=== PATIENT | female | born 1935 | race African-American/Black ===

== ENCOUNTER 2018-11-21 20:42 | Inpatient (IN) | payer OTHER ==
[2018-11-21] MEDS ORDERED: NA CHLORIDE 0.9% 500 ML ONE (22:15)
[2018-11-21 22:28] LABS: Absolute Lymphocytes (CBC) 1.8 K/uL (0.7-4.9); Absolute Monocytes 0.8 K/uL (0.1-1.3); Absolute Neutrophil 6.6 K/uL (1.8-8.0); Basophils % 0.8 % (0-1.3); Eosinophils % 1.5 % (0-4.4); Hematocrit 32.3 % (36.0-45.0); MPV 8.2 fL (7.6-11.3); Monocytes % 8.9 % (3.3-12.3); RBC Red Blood Cell Count 3.82 M/uL (3.86-4.86)
[2018-11-21 22:29] LABS: Protime INR 1.15
[2018-11-21 22:48] LABS: ALT/SGPT 14 U/L (12-78); AST/SGOT 9 U/L (15-37); Alkaline Phosphatase 97 U/L (45-117); BUN Blood Urea Nitrogen 36 mg/dL (7-18); Bicarbonate 26 mmol/L (21-32); Bilirubin Direct 0.1 mg/dL (0-0.2); Bilirubin Total 0.4 mg/dL (0.2-1.0); Glucose Level 141 mg/dL (74-106); Lipase 175 U/L (73-393); Magnesium 1.8 mg/dL (1.8-2.4); NT PRO-BNP 398 pg/mL (<450); Potassium 4.2 mmol/L (3.5-5.1); Protein, Total 9.3 g/dL (6.4-8.2); Sodium Level 141 mmol/L (136-145); Troponin (Emerg Dept Use Only) < 0.02 ng/mL (0.0-0.045)
--- NOTE | 2018-11-21 23:17 | ER ---
Nurse's Notes [facility] Name: Katrin Tsai Age: 83 yrs Sex: Female : 1935 Arrival Date: 11/21/2018 Time: 20:51 Bed 7 Private MD: MENA ALLEN Diagnosis: Fever, unspecified;Pneumonia due to other specified bacteria;Anemia, unspecified;Unspecified kidney failure Presentation: 11/21 20:53 Presenting complaint: Patient states: "First I had a bought with the flu, I've been aj1 having sweats at night. I've been anemic, I get shots at Dr. Hays's office" Patient denies pain. Reports she has been having these sweats for the past 5 days. Transition of care: patient was not received from another setting of care. Onset of symptoms was 2018. Risk Assessment: Do you want to hurt yourself or someone else? Patient reports no desire to harm self or others. Initial Sepsis Screen: Does the patient meet any 2 criteria? No. Patient's initial sepsis screen is negative. Does the patient have a suspected source of infection? No. Patient's initial sepsis screen is negative. Care prior to arrival: None. 20:53 Method Of Arrival: Ambulatory aj1 20:53 Acuity: ALY 3 aj1 Triage Assessment: 20:59 General: Appears in no apparent distress. comfortable, Behavior is calm, cooperative, aj1 appropriate for age. Pain: Denies pain. Neuro: Level of Consciousness is awake, alert, obeys commands. Cardiovascular: Patient's skin is warm and dry. Respiratory: Airway is patent Respiratory effort is even, unlabored, Respiratory pattern is regular, symmetrical. Historical: - Allergies: 20:59 Sulfa (Sulfonamide Antibiotics); aj1 - Home Meds: 20:59 carvedilol 25 mg oral tab 1 tab daily [Active]; clopidogrel 75 mg oral tab 1 tab once aj1 daily [Active]; potassium chloride 10 mEq Oral cpER 1 cap once daily [Active]; amlodipine 10 mg tab 1 tab once daily [Active]; metformin 500 mg Oral tab 1 tab once daily in the evening [Active]; valsartan-hydrochlorothiazide 320-25 mg oral tab 1 tab once daily [Active]; atorvastatin 20 mg oral tab 1 tab once daily [Active]; Vivian Thyroid 120 mg Oral tab daily [Active]; clonidine patch change every week [Active]; meclizine 25 mg Oral tab 1 tab 2 times per day [Active]; Lumigan 0.01 % ophthalmic drop nightly [Active]; - PMHx: 20:59 Hypothyroidism; Diabetes - NIDDM; Hypertension; Hyperlipidemia; aj1 - Immunization history:: Flu vaccine is up to date. - Social history:: Smoking status: Patient/guardian denies using tobacco. - Ebola Screening: : Patient denies travel to an Ebola-affected area in the 21 days before illness onset. - Family history:: not pertinent. Screenin:21 Abuse screen: Denies threats or abuse. Nutritional screening: No deficits noted. tl2 Tuberculosis screening: No symptoms or risk factors identified. Fall Risk None identified. Assessment: 21:14 General: Appears in no apparent distress. comfortable, Behavior is calm, cooperative, tl2 appropriate for age. Pain: Denies pain. Neuro: Level of Consciousness is awake, alert, obeys commands, Oriented to person, place, time, situation. Cardiovascular: Denies chest pain. Respiratory: Airway is patent Respiratory effort is even, unlabored, Respiratory pattern is regular, symmetrical. GI: No signs and/or symptoms were reported involving the gastrointestinal system. : No signs and/or symptoms were reported regarding the genitourinary system. Derm: Skin is pink, warm \\T\\ dry. pt reports that she is having "hot flashes" at night for the last 5 nights. 22:30 Reassessment: Patient appears in no apparent distress at this time. Patient and/or tl2 family updated on plan of care and expected duration. Pain level reassessed. Patient is alert, oriented x 3, equal unlabored respirations, skin warm/dry/pink. 23:30 Reassessment: Patient appears in no apparent distress at this time. Patient and/or tl2 family updated on plan of care and expected duration. Pain level reassessed. Patient is alert, oriented x 3, equal unlabored respirations, skin warm/dry/pink. 11/22 00:42 Reassessment: Patient appears in no apparent distress at this time. Patient and/or tl2 family updated on plan of care and expected duration. Pain level reassessed. Patient is alert, oriented x 3, equal unlabored respirations, skin warm/dry/pink. awaiting admission orders. 01:03 Reassessment: pt stable and ready for transport to floor. tl2 Vital Signs: 11/21 20:59 BP 150 / 79; Pulse 90; Resp 18; Temp 99.2; Pulse Ox 96% on R/A; Weight 61.23 kg (R); aj1 Height 5 ft. 3 in. (160.02 cm) (R); Pain 0/10; 22:00 BP 145 / 57; Pulse 82; Resp 17; Pulse Ox 96% ; Pain 0/10; tl1 23:00 BP 149 / 60; Pulse 82; Resp 17; Pulse Ox 96% on R/A; Pain 0/10; tl1 11/22 00:00 BP 142 / 59; Pulse 79; Resp 17; Temp 99.1(O); Pulse Ox 95% on R/A; Pain 0/10; tl1 00:46 BP 137 / 61; Pulse 81; Resp 16; Temp 99.1; Pulse Ox 97% on R/A; Pain 0/10; tl1 11/21 20:59 Body Mass Index 23.91 (61.23 kg, 160.02 cm) aj1 ED Course: 11/21 20:51 Patient arrived in ED. am2 20:52 MENA ALLEN is Private Physician. am2 20:55 Triage completed. aj1 20:59 Arm band placed on Patient placed in waiting room, Patient notified of wait time. aj1 21:22 Patient has correct armband on for positive identification. Bed in low position. Call tl2 light in reach. Adult w/ patient. 21:32 Cheo Luna MD is Attending Physician. josue 22:08 Inserted saline lock: 22 gauge in left antecubital area, using aseptic technique. Blood mt collected. 22:11 XRAY Chest (1 view) In Process Unspecified. EDMS 23:15 Priscila Pedraza MD is Hospitalizing Provider. josue 23:[address] via stretcher. kw1 23:[address] Patient moved back from CT. kw1 11/22 00:36 Thorax Wo Con In Process Unspecified. EDMS 00:42 Heidi Dennison, KNENY is Primary Nurse. tl1 00:49 No provider procedures requiring assistance completed. Patient admitted, IV remains in tl1 place. Administered Medications: 11/21 22:06 Drug: NS 0.9% 500 ml Route: IV; Rate: bolus; Site: left antecubital; tl2 23:00 Follow up: IV Status: Completed infusion; IV Intake: 500ml tl2 23:22 Drug: Rocephin - (cefTRIAXone) 1 grams Route: IVPB; Infused Over: 30 mins; Site: left tl2 antecubital; 23:30 Follow up: IV Status: Completed infusion; IV Intake: 20ml tl2 23:23 Drug: Zithromax 500 mg Route: IVPB; Infused Over: 1 hrs; Site: left antecubital; tl2 02 00:30 Follow up: IV Status: Completed infusion; IV Intake: 250ml tl2 Intake: 11/21 23:00 IV: 500ml; Total: 500ml. tl2 23:30 IV: 20ml; Total: 520ml. tl2 11/22 00:30 IV: 250ml; Total: 770ml. tl2 Outcome: 11/21 23:16 Decision to Hospitalize by Provider. josue 11/22 00:49 Admitted to Tele accompanied by tech, via wheelchair, with chart, Report called to tl1 Isatu COX 00:51 Condition: good tl1 01:02 Patient left the ED. tl1 Signatures: Dispatcher [employer] Nell Baker RN RN Cheo Murillo MD MD cha Lasagna, Tonya, RN RN tl1 Beatris Mukherjee RN RN tl2 Melinda Bailey Moriah [facility] Wilhelm, Kimberly [facility]
--- NOTE | 2018-11-21 23:18 | EDPHYS ---
Physician Documentation [facility] Name: Katrin Tsai Age: 83 yrs Sex: Female : 1935 Arrival Date: 11/21/2018 Time: 20:51 Bed 7 Private MD: MENA ALLEN ED Physician Cheo Luna HPI: 11/21 21:43 This 83 yrs old Black Female presents to ER via Ambulatory with complaints of night josue sweats. 21:43 night sweats. Onset: The symptoms/episode began/occurred 3 day(s) ago. Severity of josue symptoms: At their worst the symptoms were mild in the emergency department the symptoms are unchanged. The patient has experienced similar episodes in the past, a few times. Historical: - Allergies: 20:59 Sulfa (Sulfonamide Antibiotics); aj1 - Home Meds: 20:59 carvedilol 25 mg oral tab 1 tab daily [Active]; clopidogrel 75 mg oral tab 1 tab once aj1 daily [Active]; potassium chloride 10 mEq Oral cpER 1 cap once daily [Active]; amlodipine 10 mg tab 1 tab once daily [Active]; metformin 500 mg Oral tab 1 tab once daily in the evening [Active]; valsartan-hydrochlorothiazide 320-25 mg oral tab 1 tab once daily [Active]; atorvastatin 20 mg oral tab 1 tab once daily [Active]; Eldon Thyroid 120 mg Oral tab daily [Active]; clonidine patch change every week [Active]; meclizine 25 mg Oral tab 1 tab 2 times per day [Active]; Lumigan 0.01 % ophthalmic drop nightly [Active]; - PMHx: 20:59 Hypothyroidism; Diabetes - NIDDM; Hypertension; Hyperlipidemia; aj1 - Immunization history:: Flu vaccine is up to date. - Social history:: Smoking status: Patient/guardian denies using tobacco. - Ebola Screening: : Patient denies travel to an Ebola-affected area in the 21 days before illness onset. - Family history:: not pertinent. ROS: 21:43 Constitutional: Negative for fever, chills, and weight loss, Eyes: Negative for injury, josue pain, redness, and discharge, ENT: Negative for injury, pain, and discharge, Neck: Negative for injury, pain, and swelling, Cardiovascular: Negative for chest pain, palpitations, and edema, Respiratory: Negative for shortness of breath, cough, wheezing, and pleuritic chest pain, Abdomen/GI: Negative for abdominal pain, nausea, vomiting, diarrhea, and constipation, Back: Negative for injury and pain, : Negative for injury, bleeding, discharge, and swelling, MS/Extremity: Negative for injury and deformity, Skin: Negative for injury, rash, and discoloration, Psych: Negative for depression, anxiety, suicide ideation, homicidal ideation, and hallucinations, Allergy/Immunology: Negative for hives, rash, and allergies, Endocrine: Negative for neck swelling, polydipsia, polyuria, polyphagia, and marked weight changes, Hematologic/Lymphatic: Negative for swollen nodes, abnormal bleeding, and unusual bruising. 21:43 Neuro: Positive for weakness. Exam: 21:43 Constitutional: This is a well developed, well nourished patient who is awake, alert, josue and in no acute distress. Head/Face: Normocephalic, atraumatic. Eyes: Pupils equal round and reactive to light, extra-ocular motions intact. Lids and lashes normal. Conjunctiva and sclera are non-icteric and not injected. Cornea within normal limits. Periorbital areas with no swelling, redness, or edema. ENT: Nares patent. No nasal discharge, no septal abnormalities noted. Tympanic membranes are normal and external auditory canals are clear. Oropharynx with no redness, swelling, or masses, exudates, or evidence of obstruction, uvula midline. Mucous membranes moist. Neck: Trachea midline, no thyromegaly or masses palpated, and no cervical lymphadenopathy. Supple, full range of motion without nuchal rigidity, or vertebral point tenderness. No Meningismus. Chest/axilla: Normal chest wall appearance and motion. Nontender with no deformity. No lesions are appreciated. Cardiovascular: Regular rate and rhythm with a normal S1 and S2. No gallops, murmurs, or rubs. Normal PMI, no JVD. No pulse deficits. Respiratory: Lungs have equal breath sounds bilaterally, clear to auscultation and percussion. No rales, rhonchi or wheezes noted. No increased work of breathing, no retractions or nasal flaring. Abdomen/GI: Soft, non-tender, with normal bowel sounds. No distension or tympany. No guarding or rebound. No evidence of tenderness throughout. Back: No spinal tenderness. No costovertebral tenderness. Full range of motion. Female : Normal external genitalia. Skin: Warm, dry with normal turgor. Normal color with no rashes, no lesions, and no evidence of cellulitis. MS/ Extremity: Pulses equal, no cyanosis. Neurovascular intact. Full, normal range of motion. Neuro: Awake and alert, GCS 15, oriented to person, place, time, and situation. Cranial nerves II-XII grossly intact. Motor strength 5/5 in all extremities. Sensory grossly intact. Cerebellar exam normal. Normal gait. Psych: Awake, alert, with orientation to person, place and time. Behavior, mood, and affect are within normal limits. Vital Signs: 20:59 BP 150 / 79; Pulse 90; Resp 18; Temp 99.2; Pulse Ox 96% on R/A; Weight 61.23 kg (R); 1 Height 5 ft. 3 in. (160.02 cm) (R); Pain 0/10; 22:00 BP 145 / 57; Pulse 82; Resp 17; Pulse Ox 96% ; Pain 0/10; tl1 23:00 BP 149 / 60; Pulse 82; Resp 17; Pulse Ox 96% on R/A; Pain 0/10; tl1 11/22 00:00 BP 142 / 59; Pulse 79; Resp 17; Temp 99.1(O); Pulse Ox 95% on R/A; Pain 0/10; tl1 00:46 BP 137 / 61; Pulse 81; Resp 16; Temp 99.1; Pulse Ox 97% on R/A; Pain 0/10; tl1 11/21 20:59 Body Mass Index 23.91 (61.23 kg, 160.02 cm) [facility] MDM: 11/21 21:32 Patient medically screened. [facility] 21:45 Data reviewed: vital signs, nurses notes, lab test result(s), EKG, radiologic studies. [facility] 11/21 21:42 Order name: Basic Metabolic Panel; Complete Time: 23:05 [facility] 11/21 21:42 Order name: CBC with Diff [facility] 11/21 21:42 Order name: LFT's; Complete Time: 23:05 [facility] 11/21 21:42 Order name: Magnesium; Complete Time: 23:05 [facility] 11/21 21:42 Order name: NT PRO-BNP; Complete Time: 23:05 [facility] 11/21 21:42 Order name: PT-INR; Complete Time: 23:05 [facility] 11/21 21:42 Order name: Troponin (emerg Dept Use Only); Complete Time: 23:05 [facility] 11/21 21:42 Order name: Lipase; Complete Time: 23:05 [facility] 11/21 21:42 Order name: Urine Culture [facility] 11/21 21:42 Order name: Blood Culture Adult (2) [facility] 11/21 23:13 Order name: Procalcitonin [facility] 11/22 00:33 Order name: CBC with Automated Diff EDMS 11/22 00:33 Order name: CBC with Automated Diff EDMS 11/22 00:33 Order name: Comprehensive Metabolic Panel EDMS 11/21 21:42 Order name: XRAY Chest (1 view) [facility] 11/21 21:42 Order name: EKG; Complete Time: 21:44 [facility] 11/21 23:40 Order name: Thorax Wo Con EDMS 11/22 00:33 Order name: Comprehensive Metabolic Panel EDMS 11/22 00:34 Order name: Lipid Profile EDMS 11/22 00:34 Order name: Lipid Profile EDMS 11/22 00:34 Order name: Magnesium EDMS 11/22 00:34 Order name: Magnesium EDMS 11/22 00:34 Order name: Phosphorus EDMS 11/22 00:34 Order name: Phosphorus EDMS 11/22 00:34 Order name: CBC Smear Scan EDMS 11/22 01:01 Order name: Urine Dipstick--Ancillary (enter results) [facility] 11/21 21:42 Order name: Cardiac monitoring; Complete Time: 21:52 [facility] 11/21 21:42 Order name: EKG - Nurse/Tech; Complete Time: 22:19 [facility] 11/21 21:42 Order name: IV Saline Lock; Complete Time: 22:19 [facility] 11/21 21:42 Order name: Labs collected and sent; Complete Time: 22:19 [facility] 11/21 21:42 Order name: O2 Per Protocol; Complete Time: 21:46 [facility] 11/21 21:42 Order name: O2 Sat Monitoring; Complete Time: 21:46 [facility] 11/21 21:42 Order name: Urine Dipstick-Ancillary (obtain specimen); Complete Time: 01:00 [facility] 11/22 00:33 Order name: Regular EDMS Administered Medications: 22:06 Drug: NS 0.9% 500 ml Route: IV; Rate: bolus; Site: left antecubital; tl2 23:00 Follow up: IV Status: Completed infusion; IV Intake: 500ml tl2 23:22 Drug: Rocephin - (cefTRIAXone) 1 grams Route: IVPB; Infused Over: 30 mins; Site: left tl2 antecubital; 23:30 Follow up: IV Status: Completed infusion; IV Intake: 20ml tl2 23:23 Drug: Zithromax 500 mg Route: IVPB; Infused Over: 1 hrs; Site: left antecubital; tl2 11/22 00:30 Follow up: IV Status: Completed infusion; IV Intake: 250ml tl2 Disposition: 11/21/18 23:16 Hospitalization ordered by Priscila Pedraza for Inpatient Admission. Preliminary diagnosis are Fever, unspecified, Pneumonia due to other specified bacteria, Anemia, unspecified, Unspecified kidney failure. - Bed requested for Telemetry/MedSurg (Inpatient). - Status is Inpatient Admission. tl1 - Condition is Stable. - Problem is new. - Symptoms have improved. UTI on Admission? No Signatures: Dispatcher [employer] EDOR Nell Rodriguez RN RN aj1 Christy Chavez RN RN mw Anderson, Corey, MD MD cha Lasagna, Tonya, RN RN tl1 Beatris Mukherjee, RN RN tl2 Corrections: (The following items were deleted from the chart) 11/21 23:40 23:11 Thorax W/ Con+CT.RAD.BRZ ordered. [facility] 11/22 00:15 11/21 23:16 Hospitalization Ordered by Priscila Pedraza MD for Inpatient Admission. josue Preliminary diagnosis is Fever, unspecified; Pneumonia due to other specified bacteria. Bed requested for Telemetry/MedSurg (Inpatient). Status is Inpatient Admission. Condition is Stable. Problem is new. Symptoms have improved. UTI on Admission? No. josue 11/22 00:19 00:15 11/21/2018 23:16 Hospitalization Ordered by Priscila Pedraza MD for Inpatient mw Admission. Preliminary diagnosis is Fever, unspecified; Pneumonia due to other specified bacteria; Anemia, unspecified; Unspecified kidney failure. Bed requested for Telemetry/MedSurg (Inpatient). Status is Inpatient Admission. Condition is Stable. Problem is new. Symptoms have improved. UTI on Admission? No. josue 01:02 00:19 11/21/2018 23:16 Hospitalization Ordered by Priscila Pedraza MD for Inpatient tl1 Admission. Preliminary diagnosis is Fever, unspecified; Pneumonia due to other specified bacteria; Anemia, unspecified; Unspecified kidney failure. Bed requested for Telemetry/MedSurg (Inpatient). Status is Inpatient Admission. Condition is Stable. Problem is new. Symptoms have improved. UTI on Admission? No. mw
[2018-11-21] MEDS ORDERED: AZITHROMYCIN 500 MG/250 ML BAG ONE (23:28)
[2018-11-21] MEDS ORDERED: CEFTRIAXONE/SWI 1gm 1 GM/10 ML SYR ONE (23:28)
[2018-11-22] MEDS ORDERED: IPRATROPIUM BROM 0.5MG/2.5ML NEB PRN (00:12)
[2018-11-22] MEDS ORDERED: ALBUTEROL 2.5 MG/3 ML NEB SOL NEB PRN (00:12)
[2018-11-22] MEDS ORDERED: ONDANSETRON 4 MG/2 ML VIAL IV PRN (00:12)
[2018-11-22 00:33] LABS: Anisocytosis 1+; Blood Morphology Comment NOTED (NOT SEEN); Platelet Estimate ADEQ; Urine White Blood Cell Casts OK
[2018-11-22] MEDS: NA CHLORIDE 0.9% 1,000 ML IV SCH ×2 (01:17→15:25)
[2018-11-22 01:27] VITALS: BMI 24.4
[2018-11-22 01:45] LABS: Urine Blood 1+ (NEG); Urine Glucose NEGATIVE (NEG); Urine Protein TRACE (NEG); Urine Specific Gravity <1.005 (1.005-1.030)
[2018-11-22] MEDS ORDERED: AZITHROMYCIN IV 250 MG in NA CHLORIDE 0.9% 250 ML IVPB SCH (02:00)
[2018-11-22] MEDS ORDERED: CEFTRIAXONE 1 GM/NS 50 ML 1 GM/50 ML BAG IV SCH (03:00)
[2018-11-22] MEDS ORDERED: MAGNESIUM SULFATE 1 gm IVPB 1 GM/100 ML BAG IV ONE (06:16)
[2018-11-22 07:14] LABS: Urine Appearance CLEAR; Urine Bilirubin NEGATIVE (NEG); Urine Blood NEGATIVE (NEG); Urine Color YELLOW; Urine Glucose NEGATIVE (NEG); Urine Protein NEGATIVE (NEG); Urine Urobilinogen 0.2 mg/dL (0.2-1.0)
[2018-11-22 07:17] LABS: Urine Microscopic Reflex ORDER UMIC
--- NOTE | 2018-11-22 07:44 | EKG ---
Test Date: 2018-11-21 Test Time: 22:14:19 [employer] Instructor: MARK MEASUREMENT RESULTS: Intervals: Rate: 82 VA: 172 QRSD: 74 QT: 382 QTc: 446 Mclain: P: 63 VA: 172 QRS: -11 T: 56 INTERPRETIVE STATEMENTS: Normal sinus rhythm Moderate voltage criteria for LVH, may be normal variant Borderline ECG Compared to ECG 02/02/1993 18:38:00 No significant changes Electronically Signed On 11-22-18 07:43:47 [employer] by Syd Luciano
[2018-11-22 08:07] LABS: Urine Bacteria <20 /HPF (<20); Urine RBC <5 /HPF (NONE SEEN)
[2018-11-22 08:08] LABS: Urine Culture Reflex Order REFLEXED
[2018-11-22] MEDS: ENOXAPARIN 30 MG/0.3 ML SQ SCH (08:55)
[2018-11-22] MEDS ORDERED: CEFTRIAXONE/SWI 1gm 1 GM/10 ML SYR IVP SCH (09:00)
[2018-11-22] MEDS ORDERED: ENOXAPARIN 40 MG/0.4 ML SQ SCH (09:00)
[2018-11-22] MEDS ORDERED: PNEUMOCOCCAL VACCINE 0.5 ML IMVAC ONE (09:00)
--- NOTE | 2018-11-22 10:19 | P.CNS ---
Date of Consult: 11/22/18 Reason for Consult: Pneumonia Chief Complaint: Chills History of Present Illness: Patient is 83 years of age well up to flu-like illness in the beginning of October this year was treated with 2 courses of Zithromax no relief 5 days ago she started having chills and night sweats and was admitted to the hospital denies any chest pain productive cough was found to have pneumonia in the right lung currently doing well hemodynamically stable for prior history of cardiopulmonary problems patient does not smoke very active at baseline Allergies Sulfa (Sulfonamide Antibiotics) Allergy (Verified 11/22/18 00:38) Hives Home Medications: Amlodipine Besylate 10 mg PO DAILY 11/22/18 Atorvastatin Calcium 20 mg PO BEDTIME 11/22/18 Bimatoprost [Lumigan] 1 drop OPTH BEDTIME 11/22/18 Carvedilol 25 mg PO DAILY 11/22/18 Clonidine Patch [Catapres-Tts 1*] 1 each TD EVERY 7TH DAY 11/22/18 Clopidogrel Bisulfate [Plavix*] 75 mg PO DAILY 11/22/18 Meclizine HCl 25 mg PO BID 11/22/18 Metformin HCl 500 mg PO DAILY 6PM 11/22/18 Omeprazole 20 mg PO DAILY 11/22/18 Potassium Chloride [Klor-Con] 20 meq PO DAILY 11/22/18 Thyroid,Pork [H[place]way Thyroid] 120 mg PO DAILY 11/22/18 Valsartan/Hydrochlorothiazide [Valsartan-Hctz 320-25 mg Tab] 1 each PO DAILY 12/09 - Past Medical/Surgical History Diabetic: Yes -: hypothyroidism -: NIDDM -: HTN -: hyperlipidemia - Social History Alcohol use: No CD- Drugs: No Caffeine use: No Place of Residence: Home Review of Systems 10-point ROS is otherwise unremarkable Physical Examination Temp Pulse Resp BP Pulse Ox 98.8 F 86 18 145/64 H 96 11/22/18 08:00 11/22/18 08:00 11/22/18 08:00 11/22/18 08:00 11/22/18 08:00 General: Alert, Oriented x3 HEENT: Atraumatic Neck: Supple Respiratory: Crackles/rales (Crackles on the right side) Cardiovascular: No edema, Regular rate/rhythm, Normal S1 S2 Gastrointestinal: Normal bowel sounds, Soft and benign Laboratory Data (last 24 hrs) 11/21/18 21:40: PT 13.6 H, INR 1.15 11/21/18 21:40: WBC 9.5, Hgb 10.7 L, Hct 32.3 L, Plt Count 275 11/21/18 21:40: Sodium 141, Potassium 4.2, BUN 36 H, Creatinine 1.84 H, Glucose 141 H, Magnesium 1.8, Total Bilirubin 0.4, AST 9 L, ALT 14, Alkaline Phosphatase 97, Lipase 175 - Problems (1) Pneumonia Current Visit: Yes Status: Acute Plan: Patient is 83 years of age admitted with night sweats she does have a impressive right-sided pneumonia continue with Rocephin I have added doxycycline abnormal renal function white count is normal blood cultures pending continue with IV fluids for oxygenation is no continue with IV antibiotics until over the weekend possible discharge on Saturday on Augmentin and doxycycline she has already had 2 courses of Zithromax follow up with me in a couple of weeks Qualifiers: Pneumonia type: due to unspecified organism Laterality: right
[2018-11-22] MEDS: DOXYCYCLINE 100 MG CAP PO SCH ×2 (10:30→21:06)
[2018-11-22] MEDS: CEFTRIAXONE/SWI 1gm 1 GM/10 ML SYR IVP SCH ×2 (10:33→11:00)
--- NOTE | 2018-11-22 11:54 | P.HP ---
Certification for Inpatient Patient admitted to: Inpatient With expected LOS: >2 Midnights Patient will require the following post-hospital care: None Practitioner: I am a practitioner with admitting privileges, knowledge of patient current condition, hospital course, and medical plan of care. Services: Services provided to patient in accordance with Admission requirements found in Title 42 Section 412.3 of the Code of Federal Regulations Patient History Date of Service: 11/21/18 Reason for admission: shortness of breath with fever shakes and chills History of Present Illness: Patient is an 83-year-old female who presents to the hospital with difficulty with breathing. She has been ill for the last few days. She has had an upper respiratory infection since September. She has had 2 courses of Zithromax with no relief. Her symptoms have been grating gradually worse. She is having fever shakes and chills. She has had about 5-10 lb weight loss as well. she was seen in the emergency room and her chest x-ray revealed that she may have a pneumonia. The concerning part of this is that it could be a postobstructive pneumonia. If this is the case, then it will not heal quickly. She will be admitted to the hospital for further evaluation. Allergies Sulfa (Sulfonamide Antibiotics) Allergy (Verified 11/22/18 00:38) Hives Home Medications: Amlodipine Besylate 10 mg PO DAILY 11/22/18 Amox/Clavulanate [Augmentin 875-125 Tab] 875 mg PO BID #28 tab 11/22/18 Atorvastatin Calcium 20 mg PO BEDTIME 11/22/18 Bimatoprost [Lumigan] 1 drop OPTH BEDTIME 11/22/18 Carvedilol 25 mg PO DAILY 11/22/18 Clonidine Patch [Catapres-Tts 1*] 1 each TD EVERY 7TH DAY 11/22/18 Clopidogrel Bisulfate [Plavix*] 75 mg PO DAILY 11/22/18 Doxycycline Hyclate 100 mg PO BID #28 capsule 11/22/18 Meclizine HCl 25 mg PO BID 11/22/18 Metformin HCl 500 mg PO DAILY 6PM 11/22/18 Omeprazole 20 mg PO DAILY 11/22/18 Potassium Chloride [Klor-Con] 20 meq PO DAILY 11/22/18 Thyroid,Pork [[place] Thyroid] 120 mg PO DAILY 11/22/18 Valsartan/Hydrochlorothiazide [Valsartan-Hctz 320-25 mg Tab] 1 each PO DAILY 12/09 - Past Medical/Surgical History Has patient received pneumonia vaccine in the past: No Diabetic: Yes -: hypothyroidism -: NIDDM -: HTN -: hyperlipidemia Past Surgical History: Patient denies surgical history - Family History Father Family History: Reviewed- Non-Contributory - Social History Smoking Status: Current every day smoker Alcohol use: No CD- Drugs: No Caffeine use: No Place of Residence: Home Review of Systems 10-point ROS is otherwise unremarkable Physical Examination - Vital Signs Temperature: 98.8 F Blood Pressure: 145/64 Pulse: 86 Respirations: 18 Pulse Ox (%): 96 - Physical Exam General: Alert, In no apparent distress, Oriented x3 HEENT: Atraumatic, PERRLA, Mucous membr. moist/pink, EOMI, Sclerae nonicteric Neck: Supple, 2+ carotid pulse no bruit, No LAD, Without JVD or thyroid abnormality Respiratory: Diminished, Rhonchi/gurgles Cardiovascular: Regular rate/rhythm, Normal S1 S2 Gastrointestinal: Normal bowel sounds, Soft and benign, Non-distended, No tenderness Musculoskeletal: No clubbing, No swelling, No tenderness Integumentary: No rashes Neurological: Normal gait, Normal speech, Normal strength at 5/5 x4 extr, Normal tone, Sensation intact, Cranial nerves 3-12 intact, Normal affect Lymphatics: No axilla or inguinal lymphadenopathy - Studies Laboratory Data (last 24 hrs) 11/21/18 21:40: PT 13.6 H, INR 1.15 11/21/18 21:40: WBC 9.5, Hgb 10.7 L, Hct 32.3 L, Plt Count 275 11/21/18 21:40: Sodium 141, Potassium 4.2, BUN 36 H, Creatinine 1.84 H, Glucose 141 H, Magnesium 1.8, Total Bilirubin 0.4, AST 9 L, ALT 14, Alkaline Phosphatase 97, Lipase 175 Assessment & Plan - Problems (Diagnosis) (1) Right upper lobe pneumonia Current Visit: Yes Status: Acute (2) Right lower lobe pneumonia Current Visit: Yes Status: Acute (3) Hypertension Current Visit: Yes Status: Acute (4) Type 2 diabetes mellitus Current Visit: Yes Status: Acute (5) Dyslipidemia Current Visit: Yes Status: Acute - Plan Plan: 1. Continue with IV antibiotics 2. Awaiting sputum and blood culture; 3. Repeat chest x-ray in AM 4. CT scan of the chest reveals significant pneumonia. This may be a postobstructive pneumonia. Pulmonary has been consulted. Await their recommendation. 5. Continue with nebs as needed 6. O2 per protocol 7. Continue with gentle hydration 8. Repeat labs including CBC and renal function in a.m. 9. Outpt follow-up with Pulmonary 10. GI and DVT prophylaxis Discharge Plan: Home Plan to discharge in: 72 Hours - Advance Directives Does patient have a Living Will: Yes Does patient have a Durable POA for Healthcare: No - Code Status/Comfort Care Code Status Assessed: Yes Code Status: Full Code Critical Care: No Time Spent Managing PTS Care (In Minutes): 50
[2018-11-22] MEDS: PANTOPRAZOLE 40MG TABLET PO SCH (13:00)
[2018-11-22] MEDS ORDERED: CLONIDINE 0.1 MG/PATCH TD SCH (13:00)
[2018-11-22] MEDS ORDERED: VALSARTAN 80 MG TAB PO SCH (13:00)
[2018-11-22] MEDS: ACETAMINOPHEN 500 MG TAB PO PRN (13:26)
[2018-11-22] MEDS: CARVEDILOL 25 MG TAB PO SCH (13:27)
[2018-11-22] MEDS: AMLODIPINE 10 MG TAB PO SCH (13:27)
[2018-11-22] MEDS: CLOPIDOGREL 75 MG TABLET PO SCH (13:27)
[2018-11-22] MEDS: VALSARTAN 80 MG TAB PO SCH (13:27)
[2018-11-22] MEDS: hydroCHLOROthiazide 25 MG TAB PO SCH (13:27)
[2018-11-22] MEDS: ATORVASTATIN 20 MG TAB PO SCH (21:06)
[2018-11-22] MEDS ORDERED: VANCOMYCIN/NS 1 gm 1 GM/250 ML BAG IVPB ONE (22:45)
[2018-11-22] MEDS ORDERED: VANCOMYCIN 1 GM/VIAL ONE (23:09)
[2018-11-22] MEDS ORDERED: NA CHLORIDE 0.9% 250 ML ONE (23:10)
[2018-11-23] MEDS: ACETAMINOPHEN 500 MG TAB PO PRN ×3 (02:02→16:37)
[2018-11-23] MEDS: NA CHLORIDE 0.9% 1,000 ML IV SCH ×2 (05:30→18:20)
[2018-11-23 06:15] LABS: Magnesium 1.8 mg/dL (1.8-2.4); Phosphorus 3.7 mg/dL (2.5-4.9); Potassium 3.8 mmol/L (3.5-5.1)
[2018-11-23] MEDS ORDERED: POTASSIUM CL SA 10 MEQ TAB PO ONE (06:21)
[2018-11-23] MEDS ORDERED: MAGNESIUM SULFATE 1 gm IVPB 1 GM/100 ML BAG IV ONE (07:30)
[2018-11-23] MEDS: PANTOPRAZOLE 40MG TABLET PO SCH (08:32)
[2018-11-23] MEDS: CLOPIDOGREL 75 MG TABLET PO SCH (08:32)
[2018-11-23] MEDS: CARVEDILOL 25 MG TAB PO SCH (08:33)
[2018-11-23] MEDS: VALSARTAN 80 MG TAB PO SCH (08:33)
[2018-11-23] MEDS: DOXYCYCLINE 100 MG CAP PO SCH ×2 (08:33→21:00)
[2018-11-23] MEDS: AMLODIPINE 10 MG TAB PO SCH (08:33)
[2018-11-23] MEDS: hydroCHLOROthiazide 25 MG TAB PO SCH (08:34)
[2018-11-23] MEDS: ENOXAPARIN 30 MG/0.3 ML SQ SCH (08:34)
[2018-11-23] MEDS: CEFTRIAXONE/SWI 1gm 1 GM/10 ML SYR IVP SCH (08:34)
[2018-11-23] MEDS ORDERED: HOME MED 1 EA UNK (Omeprazole [Omeprazole] 20 MG) PO SCH (09:00)
[2018-11-23] MEDS ORDERED: hydroCHLOROthiazide 25 MG TAB PO SCH (09:00)
[2018-11-23] MEDS ORDERED: VALSARTAN PO SCH (09:00)
[2018-11-23] MEDS ORDERED: VANCOMYCIN 500 MG in NA CHLORIDE 0.9% 100 ML IVPB ONE (09:00)
[2018-11-23] MEDS ORDERED: HYDROCHLOROTHIAZIDE PO SCH (09:00)
--- NOTE | 2018-11-23 09:47 | P.PN ---
Subjective Date of Service: 11/23/18 Chief Complaint: shortness of breath with fever shakes and chills Pt seen and examined at bedside. Chart Reviewed. Case DW with Pulmonology. NO c/ o. Still having Chills at night time Review of Systems 10-point ROS is otherwise unremarkable Physical Examination - Vital Signs Temperature: 99.3 F Blood Pressure: 165/72 Pulse: 80 Respirations: 16 Pulse Ox (%): 92 - Physical Exam General: Alert, In no apparent distress HEENT: Atraumatic, PERRLA, EOMI Neck: Supple, JVD not distended Respiratory: Normal air movement, Expiratory wheezes, Inspiratory wheezes Cardiovascular: Regular rate/rhythm, Normal S1 S2 Gastrointestinal: Normal bowel sounds, No tenderness Musculoskeletal: No tenderness Integumentary: No rashes Neurological: Normal speech, Normal tone, Normal affect Lymphatics: No axilla or inguinal lymphadenopathy - Studies Medications List Reviewed: Yes Assessment And Plan - Current Problems (Diagnosis) (1) Pneumonia Current Visit: Yes Status: Acute Plan: Right Upper and Lower Lobe PNA. failed Outpt therapy x 2 -CT with RUL and RLL PNA -Continue with IV abx for now. -Switched to Vanc due to Blood culture + for gram + cocci -Pulmonology consulted. Appreciated Recs Qualifiers: Pneumonia type: due to unspecified organism Laterality: right (2) Hypertension Current Visit: Yes Status: Chronic Qualifiers: Hypertension type: essential hypertension Qualified Code(s): I10 - Essential (primary) hypertension (3) Type 2 diabetes mellitus Current Visit: Yes Status: Chronic Qualifiers: Diabetes mellitus termite control technician insulin use: without intermediate use Diabetes mellitus complication status: without complication Qualified Code(s): E11.9 - Type 2 diabetes mellitus without complications Discharge Plan: Home Plan to discharge in: 48 Hours - Code Status/Comfort Care Code Status Assessed: Yes Critical Care: No
[2018-11-23] MEDS: ATORVASTATIN 20 MG TAB PO SCH (21:54)
[2018-11-24] MEDS: NA CHLORIDE 0.9% 1,000 ML IV SCH ×2 (06:09→19:40)
[2018-11-24 06:35] LABS: Magnesium 1.9 mg/dL (1.8-2.4); Potassium 3.8 mmol/L (3.5-5.1)
[2018-11-24] MEDS ORDERED: POTASSIUM CL SA 10 MEQ TAB PO ONE ×2 (06:47→09:00)
[2018-11-24] MEDS: ENOXAPARIN 30 MG/0.3 ML SQ SCH (09:09)
[2018-11-24] MEDS: CEFTRIAXONE/SWI 1gm 1 GM/10 ML SYR IVP SCH (09:09)
[2018-11-24] MEDS: VALSARTAN 80 MG TAB PO SCH (09:10)
[2018-11-24] MEDS: AMLODIPINE 10 MG TAB PO SCH (09:10)
[2018-11-24] MEDS: CARVEDILOL 25 MG TAB PO SCH (09:10)
[2018-11-24] MEDS: PANTOPRAZOLE 40MG TABLET PO SCH (09:11)
[2018-11-24] MEDS: DOXYCYCLINE 100 MG CAP PO SCH ×2 (09:11→21:53)
[2018-11-24] MEDS: hydroCHLOROthiazide 25 MG TAB PO SCH (09:11)
[2018-11-24] MEDS: CLOPIDOGREL 75 MG TABLET PO SCH (09:11)
--- NOTE | 2018-11-24 10:25 | RAD REPORT ---
EXAM DESCRIPTION: RAD - Chest Single View CLINICAL HISTORY: COUGH. COMPARISON: None. TECHNIQUE: Portable AP chest x-ray. FINDINGS: Heart size: Normal. Lungs: Moderate peripheral infiltrate on the right appears multi lovar. AThe left lung is clear. Pleura: No pleural effusion. No pneumothorax. Mediastina, and sophy: Unremarkable. Skeletal: Unremarkable. Support tubings: None. IMPRESSION: 1. Right-sided pneumonia. Electronically signed by: Harshal Vogt MD 11/21/2018 11:56 PM TELEPHONE INTERCEPTOR OPERATOR Due to temporary technical issues with the PACS/Fluency reporting system, reports are being signed by the in house radiologist as a courtesy to ensure prompt reporting. The interpreting radiologist is f ully responsible for the content of the report.
--- NOTE | 2018-11-24 11:30 | P.PN ---
Subjective Date of Service: 11/24/18 Chief Complaint: shortness of breath with fever shakes and chills Pt seen and examined at bedside. Chart Reviewed. Case DW with Pulmonology. Patient no longer having sweats and chills overnight. Low-grade fever of 100.2 noted last night. Blood culture still pending at this time. Spoke with microbiology this morning, tape that the blood culture is positive for Gram positive weekly coags positive bacteria. It is a different type of staph coccus species. Will have proper ID by tomorrow morning at 4:00 a.m. the patient this morning continues to do well. Now having phlegm. Sputum culture collected and sent to the [facility] Review of Systems 10-point ROS is otherwise unremarkable Physical Examination - Vital Signs Temperature: 98.7 F Blood Pressure: 153/69 Pulse: 91 Respirations: 18 Pulse Ox (%): 96 - Physical Exam General: Alert, In no apparent distress HEENT: Atraumatic, PERRLA, EOMI Neck: Supple, JVD not distended Respiratory: Normal air movement, Expiratory wheezes, Inspiratory wheezes Cardiovascular: Regular rate/rhythm, Normal S1 S2 Gastrointestinal: Normal bowel sounds, No tenderness Musculoskeletal: No tenderness Integumentary: No rashes Neurological: Normal speech, Normal tone, Normal affect Lymphatics: No axilla or inguinal lymphadenopathy - Studies Medications List Reviewed: Yes Assessment And Plan - Current Problems (Diagnosis) (1) Pneumonia Onset Date: 11/24/18 Current Visit: Yes Status: Acute Plan: Right Upper and Lower Lobe PNA. failed Outpt therapy x 2 -CT with RUL and RLL PNA -Continue with IV abx for now. -Switched to Vanc due to Blood culture + for gram + cocci -Pulmonology consulted. Appreciated Recs -followup with blood culture and sputum culture tomorrow morning Qualifiers: Pneumonia type: due to unspecified organism Laterality: right (2) Hypertension Onset Date: 11/24/18 Current Visit: Yes Status: Chronic Qualifiers: Hypertension type: essential hypertension Qualified Code(s): I10 - Essential (primary) hypertension (3) Type 2 diabetes mellitus Onset Date: 11/24/18 Current Visit: Yes Status: Chronic Qualifiers: Diabetes mellitus technician terminal and repeater insulin use: without technician terminal and repeater use Diabetes mellitus complication status: without complication Qualified Code(s): E11.9 - Type 2 diabetes mellitus without complications - Plan Pending clinical improvement at this time. Patient failed outpatient therapy. Currently continue on IV antibiotics. Will culture still pending at this time. Sputum culture collected today and pending at this time. Discharge Plan: Home Plan to discharge in: 48 Hours - Code Status/Comfort Care Code Status Assessed: Yes Critical Care: No
--- NOTE | 2018-11-24 15:47 | RAD REPORT ---
EXAM DESCRIPTION: CT - Thorax Wo Con - 11/22/2018 4:30 am CLINICAL HISTORY: Thorax Wo con COMPARISON: Radiograph of the chest performed the same day. TECHNIQUE: Images obtained in axial, sagittal, and coronal planes. No oral or intravenous contrast was administe red. This exam was performed according to our departmental dose-optimization program, which includes autom ated exposure control, adjustment of the mA and/or kV according to patient size and/or less of iterat cira reconstruction technique. FINDINGS: No aortic rotation. Small pericardial effusion. Minimal pleural effusions bilaterally. Cor onary artery calcification. Mild left axillary adenopathy. Ill-defined confluent air space attenuation posterior right upper lobe as well as segment right lower lobe and interior right lower lobe. Nodular appearance present. Air bronchograms noted. Smaller nodu lar findings right upper lobe. Additional mildly spiculated confluent nodular airspace attenuation in ferior left lower lobe. No abnormality upper abdomen. No acute osseous abnormality. IMPRESSION: Extensive ill-defined nodular alveolar infiltrates right upper lobe and right lower lobe. Less pronou nced mildly spiculated infiltrate left lower lobe. The findings could be consistent with inflammatory process however follow-up to resolution would be needed to underlying neoplasm. Smaller nodular components identified right upper lobe. Small pericardial effusion. Electronically signed by: Emma Garcia MD 11/22/2018 AM REEL ASSEMBLER Due to temporary technical issues with the PACS/Fluency reporting system, reports are being signed by the in house radiologist as a courtesy to ensure prompt reporting. The interpreting radiologist is f ully responsible for the content of the report.
[2018-11-24] MEDS: ACETAMINOPHEN 500 MG TAB PO PRN (17:06)
[2018-11-24] MEDS ORDERED: VANCOMYCIN/NS 1 gm 1 GM/250 ML BAG IV SCH (21:00)
[2018-11-24] MEDS: ATORVASTATIN 20 MG TAB PO SCH (21:53)
[2018-11-25] MEDS: ACETAMINOPHEN 500 MG TAB PO PRN (03:55)
--- NOTE | 2018-11-25 08:35 | P.PN ---
Subjective Date of Service: 11/25/18 Chief Complaint: Pneumonia Subjective: Improving (Patient is doing well and has slight fever no cough sputum hemoptysis or chest pain) Review of Systems General: Weakness Respiratory: Cough Physical Examination - Vital Signs Temperature: 98.9 F Blood Pressure: 151/75 Pulse: 86 Respirations: 18 Pulse Ox (%): 96 - Physical Exam General: Alert, In no apparent distress, Oriented x3 Respiratory: Diminished, Crackles/rales (Crackles on the right side) Cardiovascular: No edema, Regular rate/rhythm - Studies Microbiology Data (last 24 hrs): 11/21/18 22:03 Blood - Blood Aerobic Blood Culture - Final Staph Hominis 11/21/18 22:03 Blood - Blood Gram Stain - Final 11/21/18 22:03 Blood - Blood Anaerobic Blood Culture - Final Staph Hominis 11/21/18 22:03 Blood - Blood Gram Stain - Final Medications List Reviewed: Yes Assessment & Plan - Problems (Diagnosis) (1) Pneumonia Onset Date: 11/24/18 Current Visit: Yes Status: Acute Plan: Patient is 83 years of age admitted with extensive pneumonia clinically she is doing better has little fever but cultures most likely contaminant sputum culture showed Gram pairs in neck ox IN change most likely strep issues as Zithromax before I recommend discharging her on levofloxacin 500 mg daily for 7 days in addition to her doxycycline follow with me in 2 weeks pre clinic chest x -ray room-air oxygenation satisfactory Qualifiers: Pneumonia type: due to unspecified organism Laterality: right
[2018-11-25] MEDS: CEFTRIAXONE/SWI 1gm 1 GM/10 ML SYR IVP SCH (09:00)
[2018-11-25] MEDS: NA CHLORIDE 0.9% 1,000 ML IV SCH (09:00)
[2018-11-25] MEDS: VALSARTAN 80 MG TAB PO SCH (10:34)
[2018-11-25] MEDS: ENOXAPARIN 30 MG/0.3 ML SQ SCH (10:34)
[2018-11-25] MEDS: DOXYCYCLINE 100 MG CAP PO SCH (10:35)
[2018-11-25] MEDS: hydroCHLOROthiazide 25 MG TAB PO SCH (10:35)
[2018-11-25] MEDS: CLOPIDOGREL 75 MG TABLET PO SCH (10:35)
[2018-11-25] MEDS: PANTOPRAZOLE 40MG TABLET PO SCH (10:36)
[2018-11-25] MEDS: CARVEDILOL 25 MG TAB PO SCH (10:36)
[2018-11-25] MEDS: AMLODIPINE 10 MG TAB PO SCH (10:36)
[2018-11-25 13:51] VITALS: O2SAT 95
[2018-11-25 13:54] VITALS: BP 154/86; TEMP 98.6
[2018-11-26] MEDS ORDERED: CLONIDINE 0.1 MG/PATCH TD SCH (09:00)
--- NOTE | 2018-11-26 15:17 | DS ---
Date of Discharge: 11/25/2018 Satellite Communications Operator: Dr. Miles with Pulmonology. Admitting Diagnoses: 1. Right upper lobe pneumonia. 2. Essential hypertension. 3. Type 2 diabetes mellitus with a long-term use of insulin with hyperglycemia. 4. Dyslipidemia. Discharge Diagnoses: 1. Right upper lobe and lower lobe pneumonia. Failed outpatient therapy, likely aspiration. 2. Essential hypertension. 3. Type 2 diabetes mellitus with a long-term use of insulin with hyperglycemia , 4. hypothyroidism, 5. hyperlipidemia. 6. SHANKAR Hospital Course: The patient is an 83-year-old female, comes in with difficulty breathing. She failed outpatient treatment with 2 courses of Zithromax. The patient's chest x-ray showed pneumonia likely postobstructive, possibly aspiration. She was started on IV antibiotics. The patient did have some elevated creatinine level, which improved with IV fluid hydration. The patient was seen by pulmonology, Dr. Miles. Sputum cultures showed growing gram-positive cocci in pairs and chains, may be strep. Blood cultures grew out Staph hominis in 2/4 bottles, likely skin contaminant. Overall, the patient responded well to treatment. She did have some fevers, clinically looked improved. CT scan of the chest showed extensive ill-defined nodular alveolar infiltrates, right upper lobe and right lower lobe less pronounced. Mildly spiculated infiltrate in the left lower lobe consistent with an inflammatory process. The patient will need repeat CT scan for resolution to rule out underlying neoplasm. Also, a small pericardial effusion was seen. The patient was doing well. She is ambulating without difficulty. No requirement of supplemental oxygen. The patient was then cleared for discharge from Pulmonology standpoint, should be sent home on Augmentin and doxycycline for 2 weeks. Return to ER for worsening condition. Follow up with primary care physician in 2 to 3 days. Follow up with process automation engineer, Dr. Miles in 2 weeks. Diet: Diabetic. Activity: As tolerated. Physical Examination: General: Awake, alert, oriented x3. No acute distress. Elderly female. CV: S1, S2. Peripheral pulses present. Respiratory: Moving air well bilaterally. No wheezing. Gastrointestinal: Abdomen is soft, nontender, nondistended. Positive bowel sounds. Extremities: No clubbing, cyanosis, or edema. Neuro: Nonfocal. Code Status: Full. Total time spent discharging the patient was 33 minutes. SA/MODL Voice ID: [id number] Report ID: [id number] SHAHAB
== END 2018-11-25 14:58 | disposition home or self-care (01) | DRG 178 ==
LOC: ER 20:42 → ERHOLD 11-22 00:41 → 4TH 11-22 00:50 → UNDODISIN 11-22 11:56
PROVIDERS: ADMIT Hospitalist; ATTEND Family Medicine
DX: J69.0 Pneumonitis due to inhalation of food and vomit (principal); N17.9 Acute kidney failure, unspecified; I31.3 Pericardial effusion (noninflammatory); E11.65 Type 2 diabetes mellitus with hyperglycemia; Z79.4 Long term (current) use of insulin; E03.9 Hypothyroidism, unspecified; I10 Essential (primary) hypertension; Z88.2 Allergy status to sulfonamides; F17.210 Nicotine dependence, cigarettes, uncomplicated
CPT/HCPCS: 36415; 71045; 71250; 80048; 80076; 80202; 81003; 81015; 82962; 83690; 83735; 83880; 84100; 84145; 84484; 85025; 85610; 87040; 87070; 87077; 87086; 87088; 87186; 87205; 93005; 94760; 96361; 96365; 96375; 99285; J0456; J0696; J1650; J3370; J3475; J7030

== ENCOUNTER 2019-01-17 16:11 | Inpatient (IN) | payer OTHER ==
[2019-01-17 17:06] LABS: Absolute Lymphocytes (CBC) 1.8 K/uL (0.7-4.9); Absolute Monocytes 0.8 K/uL (0.1-1.3); Absolute Neutrophil 6.3 K/uL (1.8-8.0); Basophils % 0.6 % (0-1.3); Eosinophils % 0.9 % (0-4.4); Hematocrit 29.7 % (36.0-45.0); Lymphocytes % 19.4 % (15.3-44.8); Monocytes % 9.1 % (3.3-12.3); RBC Red Blood Cell Count 3.64 M/uL (3.86-4.86)
[2019-01-17 17:37] LABS: Potassium 4.6 mmol/L (3.5-5.1)
--- NOTE | 2019-01-17 18:04 | RAD REPORT ---
EXAM DESCRIPTION: CT - Thorax Wo Con CLINICAL HISTORY: Chest pain cough, night sweats COMPARISON: Thorax Wo Con dated 11/21/2018 FINDINGS: Areas alveolar lung opacification seen in the posterior right upper lobe, superior segment right lower lobe and right lung base. Small linear opacity is present in the left lung base. Several small subpleural nodules are seen in the left upper lobe and right apex, new or enlarged since nicky rative study. The greatest degree of airspace opacification is seen in the posterior right lung base on today's study. No pleural or pericardial effusion. Mildly prominent mediastinal lymph nodes are seen, unchanged since prior study. No rib fracture evident. No gross upper abdominal finding. All CT scans are performed using dose optimization technique as appropriate and may include automated exposure control or mA/KV adjustment according to patient size. IMPRESSION: Areas of airspace opacification and ill-defined nodularity present predominately in the right lung.Right lower lobe findings appear new or progressive since the comparative study. Right mid and upper lobe findings appear less significant relative to comparative examination. Atypical pneumo yariel is felt to be the most likely etiology of these findings, with tuberculosis is a possibility whic h may be clinically considered.
--- NOTE | 2019-01-17 18:23 | ER ---
Nurse's Notes [facility] Name: Katrin Tsai Age: 83 yrs Sex: Female : 1935 Arrival Date: 01/17/2019 Time: 16:14 Bed 23 [facility] MD: MENA ALLEN Diagnosis: Cough;Atypical Pneumonia Presentation: 01/17 16:17 Presenting complaint: Patient states: I have been sick since September, flu and PNA. la1 Last night I got a real bad sweat and pain on the right side of my chest. Transition of care: patient was not received from another setting of care. Onset of symptoms was January 17, 2019. Risk Assessment: Do you want to hurt yourself or someone else? Patient reports no desire to harm self or others. Initial Sepsis Screen: Does the patient meet any 2 criteria? No. Patient's initial sepsis screen is negative. Does the patient have a suspected source of infection? No. Patient's initial sepsis screen is negative. Care prior to arrival: None. 16:17 Method Of Arrival: Ambulatory la1 16:17 Acuity: ALY 3 la1 Historical: - Allergies: 16:17 Sulfa (Sulfonamide Antibiotics); la1 - Home Meds: 17:38 amlodipine 10 mg tab 1 tab once daily [Active]; [place] Thyroid 120 mg Oral tab daily mg2 [Active]; atorvastatin 20 mg Oral tab 1 tab once daily [Active]; carvedilol 25 mg Oral tab 1 tab daily [Active]; clonidine patch change every week [Active]; clopidogrel 75 mg Oral tab 1 tab once daily [Active]; Lumigan 0.01 % ophthalmic drop nightly [Active]; meclizine 25 mg Oral tab 1 tab 2 times per day [Active]; metformin 500 mg Oral tab 1 tab once daily in the evening [Active]; potassium chloride 10 mEq Oral cpER 1 cap once daily [Active]; valsartan-hydrochlorothiazide 320-25 mg Oral tab 1 tab once daily [Active]; - PMHx: 16:17 Diabetes - NIDDM; Hyperlipidemia; Hypertension; Hypothyroidism; la1 - Immunization history:: Adult Immunizations up to date. - Social history:: Smoking status: Patient/guardian denies using tobacco. - Ebola Screening: : No symptoms or risks identified at this time. - Family history:: not pertinent. - Hospitalizations: : The patient was recently seen at [facility]. Screenin:36 Abuse screen: Denies threats or abuse. Denies injuries from another. Nutritional mg2 screening: No deficits noted. Tuberculosis screening: No symptoms or risk factors identified. Fall Risk IV access (20 points). Assessment: 17:35 General: Appears in no apparent distress. comfortable, Behavior is calm, cooperative. mg2 Pain: Denies pain. Neuro: Level of Consciousness is awake, alert, obeys commands, Oriented to person, place, time, situation. Cardiovascular: Capillary refill < 3 seconds Patient's skin is warm and dry. Respiratory: Reports cough that is non-productive, dry, since sep 2018 Airway is patent Respiratory effort is even, unlabored, Respiratory pattern is regular, symmetrical. GI: No signs and/or symptoms were reported involving the gastrointestinal system. : No signs and/or symptoms were reported regarding the genitourinary system. EENT: No signs and/or symptoms were reported regarding the EENT system. Derm: Skin is intact, is healthy with good turgor, Skin is pink, warm \T\ dry. normal. Musculoskeletal: Circulation, motion, and sensation intact. Capillary refill < 3 seconds. 18:56 Reassessment: patient informed about the plan for hospitalization and she agreed. mg2 19:46 Reassessment: Nurse Stanford will call to receive report. mg2 19:56 Reassessment:. mg2 Vital Signs: 16:19 Pulse 89; Resp 16; Temp 98.7(O); Pulse Ox 97% on R/A; Weight 61.23 kg; Height 5 ft. 3 la1 in. (160.02 cm); 16:20 BP 151 / 58; la1 16:38 BP 153 / 68; Pulse 90; Pulse Ox 96% ; mb4 17:18 Temp 98.4; mb4 18:54 BP 164 / 72; Pulse 89; Resp 18; Pulse Ox 98% on R/A; mg2 19:33 Temp 101.1; mg2 16:19 Body Mass Index 23.91 (61.23 kg, 160.02 cm) la1 ED Course: 16:14 Patient arrived in ED. mr 16:15 MENA ALLEN is Private Physician. mr 16:18 Triage completed. la1 16:18 Arm band placed on left wrist. la1 16:21 Chin Epstein MD is Attending Physician. rn 16:37 Pulse ox on. NIBP on. mb4 16:39 Barney Suarez, RN is Primary Nurse. mg2 17:18 Warm blanket given. mb4 17:37 No provider procedures requiring assistance completed. Inserted saline lock: 20 gauge mg2 in left forearm, using aseptic technique. Blood collected. 17:39 Patient has correct armband on for positive identification. mg2 17:54 CT completed. Patient tolerated procedure well. Patient moved to radiology. vr 17:54 Thorax Wo Con In Process Unspecified. EDMS 18:02 X-ray completed. Portable x-ray completed in exam room. Patient tolerated procedure tm4 well. 18:03 XRAY Chest Pa And Lat (2 Views) In Process Unspecified. EDMS 18:22 Meenakshi Caba MD is Hospitalizing Provider. rn 19:56 Patient admitted, IV remains in place. mg2 Administered Medications: 18:46 Drug: LevaQUIN 500 mg Volume: 100 ml; Route: IVPB; Infused Over: 60 mins; Site: left mg2 forearm; 19:37 Follow up: Response: No adverse reaction; IV Status: Completed infusion mg2 19:44 Drug: Tylenol 1000 mg Route: PO; mg2 19:50 Follow up: Response: No adverse reaction mg2 Outcome: 18:22 Decision to Hospitalize by Provider. rn 19:56 Admitted to Tele accompanied by [facility], via wheelchair, room 417, with chart, Report mg2 called to KENNY Stanford 19:56 Condition: stable 19:56 Instructed on the need for admit, Demonstrated understanding of instructions. 20:18 Patient left the ED. mg2 Signatures: Dispatcher [employer] [facility] GurpreetElaine Justo [place] tm4 Chin Epstein MD MD rn Davis, Victoria Stone Baca RN RN la1 [place], Michele, Halina Milton RN mb4
--- NOTE | 2019-01-17 18:23 | EDPHYS ---
Physician Documentation [facility] Name: Katrin Tsai Age: 83 yrs Sex: Female : 1935 Arrival Date: 01/17/2019 Time: 16:14 Bed 23 Private MD: MENA ALLEN ED Physician Chin Epstein HPI: 01/17 16:37 This 83 yrs old Black Female presents to ER via Ambulatory with complaints of Fever, rn cough, chest pain. 16:37 The patient reports fever, not measured (subjective). Onset: The symptoms/episode rn began/occurred at an unknown time. Modifying factors: there are no obvious modifying factors. Severity of symptoms: At their worst the symptoms were mild in the emergency department the symptoms are unchanged. The patient has experienced similar episodes in the past. Reports admitted for a long time last month with pneumonia, got better, but not back to baseline, reports getting chest xray every 2 weeks since then, xrays are still showing pneumonia, reports has had dry cough and fatigue, but doesn't feel as bad as previous pneumonia. No chronic lung conditions. . Historical: - Allergies: 16:17 Sulfa (Sulfonamide Antibiotics); la1 - Home Meds: 17:38 amlodipine 10 mg tab 1 tab once daily [Active]; Alcalde Thyroid 120 mg Oral tab daily mg2 [Active]; atorvastatin 20 mg Oral tab 1 tab once daily [Active]; carvedilol 25 mg Oral tab 1 tab daily [Active]; clonidine patch change every week [Active]; clopidogrel 75 mg Oral tab 1 tab once daily [Active]; Lumigan 0.01 % ophthalmic drop nightly [Active]; meclizine 25 mg Oral tab 1 tab 2 times per day [Active]; metformin 500 mg Oral tab 1 tab once daily in the evening [Active]; potassium chloride 10 mEq Oral cpER 1 cap once daily [Active]; valsartan-hydrochlorothiazide 320-25 mg Oral tab 1 tab once daily [Active]; - PMHx: 16:17 Diabetes - NIDDM; Hyperlipidemia; Hypertension; Hypothyroidism; la1 - Immunization history:: Adult Immunizations up to date. - Social history:: Smoking status: Patient/guardian denies using tobacco. - Ebola Screening: : No symptoms or risks identified at this time. - Family history:: not pertinent. - Hospitalizations: : The patient was recently [facility] at [facility]. ROS: 16:37 Constitutional: + chills and night sweats Eyes: Negative for injury, pain, redness, and pattern clerk, Neck: Negative for injury, pain, and swelling, Cardiovascular: Negative for chest pain, palpitations, and edema, Respiratory: + cough and pleuritic right chest pain Abdomen/GI: Negative for abdominal pain, nausea, vomiting, diarrhea, and constipation, MS/Extremity: Negative for injury and deformity, Skin: Negative for injury, rash, and discoloration, Neuro: + generalized weakness Exam: 16:37 Constitutional: This is a well developed, well nourished patient who is awake, alert, rn and in no acute distress. Head/Face: Normocephalic, atraumatic. Eyes: Pupils equal round and reactive to light, extra-ocular motions intact. Lids and lashes normal. Conjunctiva and sclera are non-icteric and not injected. Cornea within normal limits. Periorbital areas with no swelling, redness, or edema. ENT: MMM, no stridor Cardiovascular: Regular rate and rhythm, No pulse deficits. Respiratory: Lungs have equal breath sounds bilaterally, clear to auscultation, No increased work of breathing, no retractions or nasal flaring. Skin: Warm, dry with normal turgor. Normal color with no rashes, no lesions, and no evidence of cellulitis. MS/ Extremity: Pulses equal, no cyanosis. Neurovascular intact. Full, normal range of motion. Equal circumference. Neuro: Awake and alert, GCS 15, oriented to person, place, time, and situation. Cranial nerves II-XII grossly intact. Motor strength 5/5 in all extremities. Sensory grossly intact. Cerebellar exam normal. Vital Signs: 16:19 Pulse 89; Resp 16; Temp 98.7(O); Pulse Ox 97% on R/A; Weight 61.23 kg; Height 5 ft. 3 la1 in. (160.02 cm); 16:20 BP 151 / 58; la1 16:38 BP 153 / 68; Pulse 90; Pulse Ox 96% ; mb4 17:18 Temp 98.4; mb4 18:54 BP 164 / 72; Pulse 89; Resp 18; Pulse Ox 98% on R/A; mg2 19:33 Temp 101.1; mg2 16:19 Body Mass Index 23.91 (61.23 kg, 160.02 cm) la1 MDM: 16:21 Patient medically screened. rn 18:19 Differential diagnosis: viral Infection, bacterial infection, URI, pneumonia. Data rn reviewed: vital signs, nurses notes, lab test result(s), radiologic studies, CT scan, and as a result, I will admit patient. Counseling: I had a detailed discussion with the patient and/or guardian regarding: the historical points, exam findings, and any diagnostic results supporting the discharge/admit diagnosis, lab results, radiology results, the need for further work-up and treatment in the hospital. Admission orders: after a detailed discussion of the patient's condition and case, the admit orders are written by me. ED course: Pt with CT showing likely atypical infection, different from previous, admitted to Dr. Caba for further w/u and care. . 01/17 16:36 Order name: CBC with Diff rn 01/17 16:36 Order name: Basic Metabolic Panel; Complete Time: 17:40 01/17 16:36 Order name: N-Terminal Pro-brain Natriuretic Peptide; Complete Time: 17:40 01/17 16:36 Order name: Procalcitonin; Complete Time: 17:40 01/17 16:36 Order name: Blood Culture Adult (2) 01/17 18:23 Order name: Sputum Culture 01/17 16:36 Order name: XRAY Chest Pa And Lat (2 Views); Complete Time: 18:38 01/17 17:48 Order name: Thorax Wo Con; Complete Time: 18:09 [facility] 01/17 18:29 Order name: CONS Physician Consult [facility] 01/17 18:29 Order name: Sputum Culture [facility] 01/17 19:09 Order name: CBC Smear Scan [facility] 01/17 16:36 Order name: IV Start; Complete Time: 17:21 01/17 18:29 Order name: Heart Healthy [facility] Administered Medications: 18:46 Drug: LevaQUIN 500 mg Volume: 100 ml; Route: IVPB; Infused Over: 60 mins; Site: left mg2 forearm; 19:37 Follow up: Response: No adverse reaction; IV Status: Completed infusion mg2 19:44 Drug: Tylenol 1000 mg Route: PO; mg2 19:50 Follow up: Response: No adverse reaction mg2 Disposition: 01/17/19 18:22 Hospitalization ordered by Meenakshi Caba for Inpatient Admission. Preliminary diagnosis are Cough, Atypical Pneumonia. - Bed requested for Telemetry/MedSurg (Inpatient). - Status is Inpatient Admission. mg2 - Condition is Stable. - Problem is an ongoing problem. - Symptoms are unchanged. UTI on Admission? No Signatures: Dispatcher [employer] [facility] Jaz Ventura RN RN dw Chin Epstein MD MD rn Attema, Lee, RN RN la1 Barney Suarez RN RN mg2 Corrections: (The following items were deleted from the chart) 17:48 16:37 Thorax W/ Con+CT.RAD.BRZ ordered. [facility] 18:37 18:22 Hospitalization Ordered by Meenakshi Caba MD for Inpatient Admission. Preliminary diagnosis is Cough; Atypical Pneumonia. Bed requested for Telemetry/MedSurg (Inpatient). Status is Inpatient Admission. Condition is Stable. Problem is an ongoing problem. Symptoms are unchanged. UTI on Admission? No. rn 19:19 18:37 01/17/2019 18:22 Hospitalization Ordered by Meenakshi Caba MD for Inpatient dw Admission. Preliminary diagnosis is Cough; Atypical Pneumonia. Bed requested for Telemetry/MedSurg (Inpatient). Status is Inpatient Admission. Condition is Stable. Problem is an ongoing problem. Symptoms are unchanged. UTI on Admission? No. dw 20:18 19:19 01/17/2019 18:22 Hospitalization Ordered by Meenakshi Caba MD for Inpatient mg2 Admission. Preliminary diagnosis is Cough; Atypical Pneumonia. Bed requested for Telemetry/MedSurg (Inpatient). Status is Inpatient Admission. Condition is Stable. Problem is an ongoing problem. Symptoms are unchanged. UTI on Admission? No. dw
--- NOTE | 2019-01-17 18:24 | RAD REPORT ---
EXAM DESCRIPTION: RAD - Chest Pa And Lat (2 Views) - 01/17/2019 6:05 pm CLINICAL HISTORY: COUGH Chest pain. COMPARISON: Chest Pa And Lat (2 Views) dated 01/05/2019; Chest Pa And Lat (2 Views) dated 12/17/2018; Chest Pa And Lat (2 Views) dated 12/03/2018; Chest Single View dated 11/21/2018 FINDINGS: Poorly defined lung opacity is present in the right lung base and right lower lobe, progre ssive since prior study. Right mid lung opacification appears improved. Small amount of linear opacit y is present in the left lung base. The heart is normal in size.
[2019-01-17] MEDS ORDERED: Levofloxacin500mg IV 500 MG/100 ML BAG IV ONE (18:48)
[2019-01-17 19:08] LABS: Anisocytosis 1+; Blood Morphology Comment NOTED (NOT SEEN); Platelet Estimate ADEQ; Rouleau SLIGHT; Urine White Blood Cell Casts OK
[2019-01-17] MEDS ORDERED: ACETAMINOPHEN 500 MG TAB ONE (19:49)
[2019-01-17] MEDS: ALBUTEROL 2.5 MG/3 ML NEB SOL NEB SCH (20:00)
[2019-01-17] MEDS: IPRATROPIUM BROM 0.5MG/2.5ML NEB SCH (20:00)
[2019-01-17] MEDS ORDERED: ONDANSETRON 4 MG/2 ML VIAL IV PRN (20:32)
[2019-01-17] MEDS ORDERED: INSULIN -REGULAR HUMAN 50 UNIT/0.5 ML ML SQ SCH (21:00)
[2019-01-17 23:03] VITALS: BMI 23.9
[2019-01-18 01:03] LABS: Urine Appearance CLEAR; Urine Bilirubin NEGATIVE (NEG); Urine Blood NEGATIVE (NEG); Urine Color YELLOW; Urine Glucose NEGATIVE (NEG); Urine Protein NEGATIVE (NEG); Urine Specific Gravity <=1.005 (1.005-1.030); Urine Urobilinogen 0.2 mg/dL (0.2-1.0); Urine pH 5.5 (5.0-7.0)
[2019-01-18 01:05] LABS: Urine Microscopic Reflex ORDER UMIC
[2019-01-18 01:12] LABS: Urine Bacteria <20 /HPF (<20); Urine Culture Reflex Order REFLEXED; Urine RBC <5 /HPF (NONE SEEN)
[2019-01-18] MEDS: ALBUTEROL 2.5 MG/3 ML NEB SOL NEB SCH ×2 (02:00→09:10)
[2019-01-18] MEDS: IPRATROPIUM BROM 0.5MG/2.5ML NEB SCH ×2 (02:00→09:10)
[2019-01-18] MEDS ORDERED: ACETAMINOPHEN 325 MG TABLET PO PRN (04:34)
[2019-01-18] MEDS: CARVEDILOL 25 MG TAB PO SCH (05:04)
[2019-01-18 05:59] LABS: Absolute Lymphocytes (CBC) 1.4 K/uL (0.7-4.9); Absolute Neutrophil 6.8 K/uL (1.8-8.0); Basophils % 0.6 % (0-1.3); Eosinophils % 1.8 % (0-4.4); Hematocrit 26.9 % (36.0-45.0); Lymphocytes % 15.2 % (15.3-44.8); MPV 7.8 fL (7.6-11.3); Monocytes % 10.4 % (3.3-12.3); RBC Red Blood Cell Count 3.34 M/uL (3.86-4.86)
--- NOTE | 2019-01-18 06:22 | P.HP ---
Certification for Inpatient Patient admitted to: Inpatient With expected LOS: >2 Midnights Patient will require the following post-hospital care: None Practitioner: I am a practitioner with admitting privileges, knowledge of patient current condition, hospital course, and medical plan of care. Services: Services provided to patient in accordance with Admission requirements found in Title 42 Section 412.3 of the Code of Federal Regulations Patient History Date of Service: 01/17/19 Reason for admission: Infectious pneumonia vs. interstitial pneumonia History of Present Illness: Patient is an 83-year-old female came to the hospital with feeling short of breath and having fevers she was there about a month and a half ago with similar complaints. At that time she was found have a pneumonia and treated with steroids and antibiotics. Her clinical symptoms had improved up until a couple weeks ago when she stopped the steroids. At that time her chest x-ray had shown improvement. However, since stopping the steroids patient states that her symptoms have worsened. Patient is started having sweats once again. She has not had home mild assist or weight loss. Her daughter is with her and corroborates that she is much worse as far as her feeling short of breath and fevers. She does have the appearance of a infiltrate we appearing that had resolved a couple weeks ago. At this time will go ahead and admit her to the hospital consult pulmonary. I believe we should be given dc her isolation. Will wait for Pulmonary to see her prior code discontinuing this has Dr. Mejia is her security operations center analyst in the outpatient setting Allergies Sulfa (Sulfonamide Antibiotics) Allergy (Verified 11/22/18 00:38) Hives Home Medications: Amlodipine Besylate 10 mg PO DAILY 11/22/18 Atorvastatin Calcium 20 mg PO BEDTIME 11/22/18 Bimatoprost [Lumigan] 1 drop OPTH BEDTIME 11/22/18 Carvedilol 25 mg PO DAILY 11/22/18 Clonidine Patch [Catapres-Tts 1*] 1 each TD EVERY 7TH DAY 11/22/18 Clopidogrel Bisulfate [Plavix*] 75 mg PO DAILY 11/22/18 Meclizine HCl 25 mg PO BID 11/22/18 Metformin HCl 500 mg PO DAILY 6PM 11/22/18 Omeprazole 20 mg PO DAILY 11/22/18 Potassium Chloride [Klor-Con] 20 meq PO DAILY 11/22/18 Thyroid,Pork [Hadley Thyroid] 120 mg PO DAILY 11/22/18 Valsartan/Hydrochlorothiazide [Valsartan-Hctz 320-25 mg Tab] 1 each PO DAILY 12/09 - Past Medical/Surgical History Has patient received pneumonia vaccine in the past: No Diabetic: Yes -: hypothyroidism -: NIDDM -: HTN -: hyperlipidemia -: Appy - 1970 -: Hysterectomy - 1974 -: Bilat breast biopsy - negative - Family History Father Family History: Reviewed- Non-Contributory - Social History Smoking Status: Never smoker Alcohol use: No CD- Drugs: No Caffeine use: No Place of Residence: Home Review of Systems 10-point ROS is otherwise unremarkable Physical Examination - Vital Signs Temperature: 100.4 F Blood Pressure: 183/82 Pulse: 96 Respirations: 16 Pulse Ox (%): 97 - Physical Exam General: Alert, In no apparent distress, Oriented x3 HEENT: Atraumatic, PERRLA, Mucous membr. moist/pink, EOMI, Sclerae nonicteric Neck: Supple, 2+ carotid pulse no bruit, No LAD, Without JVD or thyroid abnormality Respiratory: Clear to auscultation bilaterally, Normal air movement Cardiovascular: Regular rate/rhythm, Normal S1 S2, No murmurs Gastrointestinal: Normal bowel sounds, Soft and benign, Non-distended, No tenderness Musculoskeletal: No clubbing, No swelling, No tenderness Integumentary: No rashes Neurological: Normal gait, Normal speech, Normal strength at 5/5 x4 extr, Normal tone, Sensation intact, Cranial nerves 3-12 intact, Normal affect Lymphatics: No axilla or inguinal lymphadenopathy - Studies Laboratory Data (last 24 hrs) 01/17/19 16:45: Sodium 138, Potassium 4.6, BUN 48 H, Creatinine 2.27 H, Glucose 187 H 01/17/19 16:45: WBC 9.1, Hgb 9.6 L, Hct 29.7 L, Plt Count 332 Assessment & Plan - Problems (Diagnosis) (1) Interstitial pneumonia Current Visit: Yes Status: Acute (2) Bacterial pneumonia Current Visit: Yes Status: Acute - Plan 1. Continue with IV antibiotics 2. Awaiting sputum and blood culture 3. Repeat chest x-ray 4. Patient may need bronchoscopy if clinically not improving; will get pulmonary consultation 5. Echocardiogram 6. Continue with nebs as needed 7. O2 per protocol 8. Continue with gentle hydration 9. Repeat labs and we may need to do autoimmune panel as well to rule out causes of pneumonitis and other interstitial pneumonia 10. GI and DVT prophylaxis Discharge Plan: Home Plan to discharge in: Greater than 2 days - Advance Directives Does patient have a Living Will: Yes Does patient have a Durable POA for Healthcare: Yes - Code Status/Comfort Care Code Status Assessed: Yes Code Status: Full Code Critical Care: No Time Spent Managing PTS Care (In Minutes): 45
[2019-01-18 08:31] LABS: Albumin 2.5 g/dL (3.4-5.0); Bilirubin Total 0.3 mg/dL (0.2-1.0); Potassium 4.1 mmol/L (3.5-5.1); Protein, Total 7.9 g/dL (6.4-8.2)
[2019-01-18] MEDS ORDERED: CEFTRIAXONE/SWI 1gm 1 GM/10 ML SYR IV SCH (09:00)
[2019-01-18] MEDS ORDERED: AZITHROMYCIN IV 500 MG in NA CHLORIDE 0.9% 250 ML IVPB SCH (09:00)
[2019-01-18] MEDS ORDERED: VALSARTAN 160 MG TAB PO SCH (09:00)
[2019-01-18] MEDS ORDERED: PNEUMOCOCCAL VACCINE 0.5 ML IMVAC ONE (09:00)
[2019-01-18] MEDS: VALSARTAN 80 MG TAB PO SCH (09:31)
[2019-01-18] MEDS: ENOXAPARIN 30 MG/0.3 ML SQ SCH (09:32)
[2019-01-18] MEDS: AMLODIPINE 10 MG TAB PO SCH (09:32)
--- NOTE | 2019-01-18 10:04 | P.PN ---
Subjective Date of Service: 01/18/19 Chief Complaint: Infectious pneumonia vs. interstitial pneumonia Subjective: No C/O voiced, Tolerating diet, Ambulating, Doing well, Other ( Denies Fever, or chills. Did have night sweats last night.) Review of Systems 10-point ROS is otherwise unremarkable Physical Examination - Vital Signs Temperature: 98.8 F Blood Pressure: 151/69 Pulse: 86 Respirations: 16 Pulse Ox (%): 96 - Physical Exam General: Alert, In no apparent distress HEENT: Atraumatic, PERRLA, EOMI Neck: Supple, JVD not distended Respiratory: Normal air movement, Rhonchi/gurgles (Right side of the lung ) Cardiovascular: Regular rate/rhythm, Normal S1 S2 Gastrointestinal: Normal bowel sounds, No tenderness Musculoskeletal: No tenderness Integumentary: No rashes Neurological: Normal speech, Normal tone, Normal affect Lymphatics: No axilla or inguinal lymphadenopathy - Studies Laboratory Data (last 24 hrs) 01/17/19 16:45: Sodium 138, Potassium 4.6, BUN 48 H, Creatinine 2.27 H, Glucose 187 H 01/17/19 16:45: WBC 9.1, Hgb 9.6 L, Hct 29.7 L, Plt Count 332 Medications List Reviewed: Yes Assessment And Plan - Current Problems (Diagnosis) (1) Pneumonia Onset Date: 11/24/18 Current Visit: No Status: Acute Plan: Right Upper and lower lobe PNA. Most Likely Atypical PNA -CT with atypical PNA and possible TB -Pulmonology Consulted. Awaiting Reccs at this time -On IV rocephin and azithromycin -Sputum Culture pending, blood culture pending -PPD and AFB ordered as well Qualifiers: Pneumonia type: due to unspecified organism Laterality: right Lung location: upper lobe of lung Qualified Code(s): J18.1 - Lobar pneumonia, unspecified organism (2) Dyslipidemia Onset Date: 11/24/18 Current Visit: No Status: Chronic (3) Hypertension Onset Date: 11/24/18 Current Visit: No Status: Chronic Qualifiers: Hypertension type: essential hypertension Qualified Code(s): I10 - Essential (primary) hypertension (4) Type 2 diabetes mellitus Onset Date: 11/24/18 Current Visit: No Status: Chronic Qualifiers: Diabetes mellitus laborer marine terminal insulin use: without longterm use Diabetes mellitus complication status: without complication Qualified Code(s): E11.9 - Type 2 diabetes mellitus without complications - Plan Pending Pulmonology consult and pending culture at this time. Will await results Discharge Plan: Home Plan to discharge in: Greater than 2 days - Code Status/Comfort Care Code Status Assessed: Yes Critical Care: No
[2019-01-18] MEDS ORDERED: ALBUTEROL 2.5 MG/3 ML NEB SOL NEB PRN (10:36)
--- NOTE | 2019-01-18 10:43 | P.CNS ---
Date of Consult: 01/18/19 Chief Complaint: Fever and chest pain History of Present Illness: Patient is 83 years of age well known to me in patient was admitted here on November 22 with a diagnosis of pneumonia follow up as an outpatient are treated with steroids patient got better in his own was stopped though she started having fever admitted with right-sided chest discomfort chest x-ray has shown an over all improvement denies any cough she has never smoked Allergies Sulfa (Sulfonamide Antibiotics) Allergy (Verified 11/22/18 00:38) Hives Home Medications: Amlodipine Besylate 10 mg PO DAILY 11/22/18 Atorvastatin Calcium 20 mg PO BEDTIME 11/22/18 Bimatoprost [Lumigan] 1 drop OPTH BEDTIME 11/22/18 Carvedilol 25 mg PO DAILY 11/22/18 Clonidine Patch [Catapres-Tts 1*] 1 each TD EVERY 7TH DAY 11/22/18 Clopidogrel Bisulfate [Plavix*] 75 mg PO DAILY 11/22/18 Meclizine HCl 25 mg PO BID 11/22/18 Metformin HCl 500 mg PO DAILY 6PM 11/22/18 Omeprazole 20 mg PO DAILY 11/22/18 Potassium Chloride [Klor-Con] 20 meq PO DAILY 11/22/18 Thyroid,Pork [[place] Thyroid] 120 mg PO DAILY 11/22/18 Valsartan/Hydrochlorothiazide [Valsartan-Hctz 320-25 mg Tab] 1 each PO DAILY 12/09 - Past Medical/Surgical History Diabetic: Yes -: hypothyroidism -: NIDDM -: HTN -: hyperlipidemia -: Renal insufficiency -: Appy - 1970 -: Hysterectomy - 1974 -: Bilat breast biopsy - negative - Family History Father Family History: Reviewed- Non-Contributory - Social History Alcohol use: No CD- Drugs: No Caffeine use: No Place of Residence: Home Review of Systems General: Fever, Weakness Cardiovascular: Chest Pain Physical Examination Temp Pulse Resp BP Pulse Ox 98.8 F 86 16 151/69 H 96 01/18/19 10:06 01/18/19 10:06 01/18/19 10:06 01/18/19 10:06 01/18/19 10:06 General: Alert, Oriented x3 HEENT: Atraumatic Respiratory: Clear to auscultation bilaterally Cardiovascular: No edema, Normal S1 S2 Laboratory Data (last 24 hrs) 01/17/19 16:45: Sodium 138, Potassium 4.6, BUN 48 H, Creatinine 2.27 H, Glucose 187 H 01/17/19 16:45: WBC 9.1, Hgb 9.6 L, Hct 29.7 L, Plt Count 332 - Problems (1) Bronchiolitis obliterans organizing pneumonia Current Visit: Yes Status: Acute Plan: Patient is 83 years of age initially diagnosed with extensive pneumonia once every 2nd she did better on steroids and then relapsed again the chest x-ray did show an overall improvement she still has some persistent consolidation worse on the right side normal white count no evidence of sepsis patient has renal insufficiency I suspect she is secondary anemia blood pressure is little elevated patient has some fever on admission saturation satisfactory he needs to be treated with steroids I have started her on Solu-Medrol Dc IV antibiotics discharge tomorrow on prednisone 10 mg twice a day for 2 weeks then 10 mg once a day to follow up with me next week I have also ordered an echo with Doppler Lasix for the possibility of volume overload
[2019-01-18] MEDS: METHYLPREDNISOLONE 40 MG INJ IV SCH ×2 (11:19→16:25)
[2019-01-18] MEDS: FUROSEMIDE 20 MG/ 2ML VIAL IV SCH ×2 (11:19→16:25)
[2019-01-18] MEDS ORDERED: GLUCAGON 1 MG/VIAL IM PRN (21:30)
[2019-01-18] MEDS ORDERED: D50W 25 GM/50 ML SYRINGE IV PRN (21:30)
[2019-01-18] MEDS: INSULIN -REGULAR HUMAN 50 UNIT/0.5 ML ML SQ SCH (22:07)
[2019-01-19] MEDS: METHYLPREDNISOLONE 40 MG INJ IV SCH ×2 (01:08→08:14)
[2019-01-19 06:08] LABS: Absolute Lymphocytes (CBC) 0.9 K/uL (0.7-4.9); Absolute Monocytes 0.1 K/uL (0.1-1.3); Absolute Neutrophil 6.6 K/uL (1.8-8.0); Basophils % 0.1 % (0-1.3); Hematocrit 28.1 % (36.0-45.0); Lymphocytes % 12.2 % (15.3-44.8); MPV 8.1 fL (7.6-11.3); Monocytes % 1.8 % (3.3-12.3); RBC Red Blood Cell Count 3.42 M/uL (3.86-4.86)
[2019-01-19 06:10] LABS: Albumin 2.5 g/dL (3.4-5.0); Bilirubin Total 0.2 mg/dL (0.2-1.0); Potassium 3.8 mmol/L (3.5-5.1)
[2019-01-19] MEDS: CARVEDILOL 25 MG TAB PO SCH (06:34)
[2019-01-19] MEDS ORDERED: POTASSIUM CL SA 10 MEQ TAB PO ONE (08:00)
[2019-01-19] MEDS: INSULIN -REGULAR HUMAN 50 UNIT/0.5 ML ML SQ SCH ×2 (08:13→11:26)
[2019-01-19] MEDS: FUROSEMIDE 20 MG/ 2ML VIAL IV SCH (08:14)
[2019-01-19] MEDS: ENOXAPARIN 30 MG/0.3 ML SQ SCH (08:14)
[2019-01-19] MEDS: VALSARTAN 80 MG TAB PO SCH (08:15)
[2019-01-19] MEDS: AMLODIPINE 10 MG TAB PO SCH (08:16)
[2019-01-19] MEDS ORDERED: predniSONE 10 MG TAB PO SCH (09:00)
--- NOTE | 2019-01-19 10:31 | RAD REPORT ---
EXAM DESCRIPTION: US - Renal Ultrasound-Complete - 01/19/2019 10:00 am CLINICAL HISTORY: renal failure COMPARISON: No comparisons FINDINGS: Both kidneys are echogenic. The right kidney measures 9.3 x 3.9 x 3.9 cm. No hydronephrosis, focal mass or perinephric fluid. The left kidney measures 9.4 x 5.8 x 4.2 cm. No hydronephrosis, focal mass or perinephric fluid. The urinary bladder is incompletely distended without gross abnormality seen. IMPRESSION: Mildly echogenic kidneys bilaterally compatible with underlying medical renal disease.
[2019-01-19 10:32] VITALS: O2SAT 95
--- NOTE | 2019-01-19 13:01 | ECHO ---
HEIGHT: 5 ft 3 in WEIGHT: 135 lb 0 oz DATE OF STUDY: 01/19/[address]: Vivek Miles MD 2-DIMENSIONAL: YES M.MODE: YES DOPPLER: YES COLOR FLOW: YES TDS: NO PORTABLE: NO DEFINITY: NO BUBBLE STUDY: NO DIAGNOSIS: SHORTNESS OF BREATH CARDIAC HISTORY: CATHERIZATION: SURGERY: PROSTHETIC VALVE: PACEMAKER: MEASUREMENTS (cm) DIASTOLIC (NORMALS) SYSTOLIC (NORMALS) IVSd 0.8 (0.6-1.2) LA Diam 3.4 (1.9-4.0) LVEF 79% LVIDd 4.3 (3.5-5.7) LVIDs 2.3 (2.0-3.5) %FS 47% LVPWd 1.0 (0.6-1.2) Ao Diam 2.8 (2.0-3.7) 2 DIMENSIONAL ASSESSMENT: RIGHT ATRIUM: NORMAL LEFT ATRIUM: NORMAL RIGHT VENTRICLE: NORMAL LEFT VENTRICLE: NORMAL TRICUSPID VALVE: NORMAL MITRAL VALVE: MITRAL ANNULAR CALCIFICATION PULMONIC VALVE: NORMAL AORTIC VALVE: NORMAL PERICARDIAL EFFUSION: NONE AORTIC ROOT: NORMAL LEFT VENTRICULAR WALL MOTION: NORMAL. DOPPLER/COLOR FLOW: MILD MITRAL AND TRICUSPID REGURGITATION. NORMAL RIGHT VENTRICULAR SYSTOLIC PRESSURE. IMPAIRED LEFT VENTRICULAR RELAXATION. COMMENTS: NORMAL LEFT VENTRICULAR EJECTION FRACTION. MITRAL ANNULAR CALCIFICATION. MILD MITRAL AND TRICUSPID REGURGITATION. IMPAIRED LEFT VENTRICULAR RELAXATION. TECHNOLOGIST: TESSA ZAFAR
[2019-01-19 14:36] VITALS: BP 149/65; TEMP 97.9
--- NOTE | 2019-01-20 18:54 | P.DS ---
Admission Date: 01/17/19 Discharge Date: 01/20/19 Disposition: ROUTINE DISCHARGE Reason for Admission: Fever and chest pain Brief History of Present Illness: see HC Hospital Course: 83-year-old female came to the hospital with feeling short of breath and having fevers ,initially was treatedfor PNA with IV abx ,ws seen by pulmonary who recommended to dc her IV abx and treat her with steroids for BOOP on the day of discharge pt is clinically and hemodynimically stable confirmed with pulmonary that pt is clear for dc and no concerns for TB pt ws managed for: (1) BOOP Right Upper and lower lobe PNA. Most Likely Atypical PNA -CT with atypical PNA -Pulmonology Consulted. Awaiting Reccs at this time -On IV rocephin and azithromycin steroid tapering (2) Dyslipidemia (3) Hypertension (4) Type 2 diabetes mellitus O Vital Signs/Physical Exam: Temp Pulse Resp BP Pulse Ox 97.9 F 95 H 18 149/65 H 97 01/19/19 12:00 01/19/19 12:00 01/19/19 12:00 01/19/19 12:00 01/19/19 12:00 Laboratory Data at Discharge: WBC 7.7 K/uL (4.3-10.9) D 01/19/19 05:16 Hgb 9.4 g/dL (12.0-15.0) L 01/19/19 05:16 Hct 28.1 % (36.0-45.0) L 01/19/19 05:16 Plt Count 331 K/uL (152-406) 01/19/19 05:16 Sodium 141 mmol/L (136-145) 01/19/19 05:16 Potassium 3.8 mmol/L (3.5-5.1) 01/19/19 05:16 BUN 51 mg/dL (7-18) H 01/19/19 05:16 Creatinine 1.86 mg/dL (0.55-1.3) H 01/19/19 05:16 Glucose 235 mg/dL (74-106) H 01/19/19 05:16 Total Bilirubin 0.2 mg/dL (0.2-1.0) 01/19/19 05:16 AST 9 U/L (15-37) L 01/19/19 05:16 ALT 14 U/L (12-78) 01/19/19 05:16 Alkaline Phosphatase 89 U/L (45-117) 01/19/19 05:16 Home Medications: Amlodipine Besylate 10 mg PO DAILY 11/22/18 Atorvastatin Calcium 20 mg PO BEDTIME 11/22/18 Bimatoprost [Lumigan] 1 drop OPTH BEDTIME 11/22/18 Carvedilol 25 mg PO DAILY 11/22/18 Clonidine Patch [Catapres-Tts 1*] 1 each TD EVERY 7TH DAY 11/22/18 Clopidogrel Bisulfate [Plavix*] 75 mg PO DAILY 11/22/18 Meclizine HCl 25 mg PO BID 11/22/18 Metformin HCl 500 mg PO DAILY 6PM 11/22/18 Omeprazole 20 mg PO DAILY 11/22/18 Potassium Chloride [Klor-Con] 20 meq PO DAILY 11/22/18 Thyroid,Pork [[place] Thyroid] 120 mg PO DAILY 11/22/18 Acetaminophen [Tylenol*] 650 mg PO Q6H PRN tab 01/19/19 Albuterol Neb [Proventil 0.083% Neb Soln] 2.5 mg NEB Q6HP PRN amp 01/19/19 Amlodipine [Norvasc*] 10 mg PO DAILY tab 01/19/19 Carvedilol [Coreg*] 25 mg PO [id number] tab 01/19/19 Furosemide [Lasix] 20 mg PO DAILY #30 tab 01/19/19 predniSONE [Deltasone*] 10 mg PO BID #30 tab 01/19/19 New Medications: Furosemide [Lasix] 20 mg PO DAILY #30 tab predniSONE [Deltasone*] 10 mg PO BID #30 tab Patient Discharge Instructions: Patient can be discharged home on prednisone 10 mg a day for 2 weeks to follow up with me next week I have also added some Lasix. She will also need to contact her primary care physician for referral to a house player regarding renal insufficiency Diet: Regular Activity: Ad xi Followup: Vivek Miles MD [ACTIVE - CAN ADMIT] - 1-2 Weeks (Call to schedule an appointment) Wally Mendez MD [Primary Care Provider] - 1 Week (Call to schedule an appointment)
== END 2019-01-19 16:10 | disposition home or self-care (01) | DRG 198 ==
LOC: ER 16:11 → ERHOLD 18:28 → 4TH 20:03
PROVIDERS: ADMIT Family Medicine; ATTEND Internal Medicine
DX: J84.89 Other specified interstitial pulmonary diseases (principal); E03.9 Hypothyroidism, unspecified; E11.9 Type 2 diabetes mellitus without complications; Z79.84 Long term (current) use of oral hypoglycemic drugs; I10 Essential (primary) hypertension; E78.5 Hyperlipidemia, unspecified; N28.9 Disorder of kidney and ureter, unspecified; D64.89 Other specified anemias
CPT/HCPCS: 36415; 71046; 71250; 76770; 80048; 80053; 81003; 81015; 82962; 83880; 84145; 85025; 87015; 87040; 87070; 87086; 87088; 87116; 87205; 87206; 93306; 94640; 94760; 96365; 99285; J0456; J0696; J1650; J1940; J2920

== ENCOUNTER 2019-09-03 16:45 | Observation (INO) | payer OTHER ==
--- OUTSIDE RECORDS SUMMARY | 2019-09-03 16:47 | XMS REPORT ---
:1935 [facility] Address [address] [place] [address] Care Team Providers Name Role Phone Unavailable Unavailable Unavailable Problems This patient has no known problems. Allergies, Adverse Reactions, Alerts This patient has no known allergies or adverse reactions. Medications This patient has no known medications.
[2019-09-03 18:08] LABS: Potassium 7.2 mmol/L (3.5-5.1)
[2019-09-03 18:18] LABS: Absolute Lymphocytes (CBC) 1.2 K/uL (0.7-4.9); Basophils % 1.9 % (0-1.3); Hematocrit 32.3 % (36.0-45.0); Lymphocytes % 20.3 % (15.3-44.8); MPV 8.1 fL (7.6-11.3); RBC Red Blood Cell Count 3.72 M/uL (3.86-4.86)
[2019-09-03] MEDS ORDERED: SOD POLYSTYREN SUL 15 GM/60 ML UCUP ONE (18:26)
[2019-09-03] MEDS ORDERED: D50W 25 GM/50 ML SYRINGE/VIAL IV ONE ×2 (18:26→20:33)
[2019-09-03] MEDS ORDERED: FUROSEMIDE 20 MG/ 2ML VIAL ONE (18:26)
[2019-09-03] MEDS ORDERED: ALBUTEROL 2.5 MG/3 ML NEB SOL ONE (18:26)
[2019-09-03] MEDS ORDERED: INSULIN -REGULAR HUMAN 50 UNIT/0.5 ML ML ONE (18:26)
[2019-09-03] MEDS ORDERED: NA CHLORIDE 0.9% 1,000 ML ONE (20:12)
--- NOTE | 2019-09-03 20:20 | EDPHYS ---
Physician Documentation [facility] Name: Katrin Tsai Age: 84 yrs Sex: Female : 1935 Arrival Date: 09/03/2019 Time: 16:48 Bed 7 Private MD: MENA ALLEN ED Physician Nicko Mosqueda HPI: 09/03 17:18 This 84 yrs old Black Female presents to ER via Ambulatory with complaints of Abnormal kdr Lab Results. 17:18 The patient had blood drawn in [place] earlier today and the lab called her to inform kdr her that her potassium was high. She does not know the value. Onset: The symptoms/episode began/occurred at an unknown time. Severity of symptoms: At their worst the symptoms were Pain is currently a 0 / 10. The patient has not experienced similar symptoms in the past. The patient has not recently seen a physician. Historical: - Allergies: 17:08 Sulfa (Sulfonamide Antibiotics); ph - Home Meds: 17:08 amlodipine 10 mg tab 1 tab once daily [Active]; [place] Thyroid 120 mg Oral tab daily ph [Active]; atorvastatin 20 mg Oral tab 1 tab once daily [Active]; carvedilol 25 mg Oral tab 1 tab daily [Active]; clonidine patch change every week [Active]; clopidogrel 75 mg Oral tab 1 tab once daily [Active]; Lumigan 0.01 % ophthalmic drop nightly [Active]; meclizine 25 mg Oral tab 1 tab 2 times per day [Active]; metformin 500 mg Oral tab 1 tab once daily in the evening [Active]; potassium chloride 10 mEq Oral cpER 1 cap once daily [Active]; omeprazole 20 mg Oral cpDR 1 cap once daily [Active]; spironolactone 25 mg Oral tab 1 tab once daily [Active]; - PMHx: 17:08 Diabetes - NIDDM; Hyperlipidemia; Hypertension; Hypothyroidism; ph - Immunization history:: Adult Immunizations up to date. - Social history:: Smoking status: Patient/guardian denies using tobacco. - Ebola Screening: : No symptoms or risks identified at this time. ROS: 17:18 Constitutional: Negative for fever, chills, and weight loss, Eyes: Negative for injury, kdr pain, redness, and discharge, ENT: Negative for injury, pain, and discharge, Neck: Negative for injury, pain, and swelling, Cardiovascular: Negative for chest pain, palpitations, and edema, Respiratory: Negative for shortness of breath, cough, wheezing, and pleuritic chest pain, Abdomen/GI: Negative for abdominal pain, nausea, vomiting, diarrhea, and constipation, Back: Negative for injury and pain, : Negative for injury, bleeding, discharge, and swelling, MS/Extremity: Negative for injury and deformity, Skin: Negative for injury, rash, and discoloration, Neuro: Negative for headache, weakness, numbness, tingling, and seizure activity. Psych: Negative for depression, anxiety, suicide ideation, homicidal ideation, and hallucinations, Allergy/Immunology: Negative for hives, rash, and allergies, Endocrine: Negative for neck swelling, polydipsia, polyuria, polyphagia, and marked weight changes, Hematologic/Lymphatic: Negative for swollen nodes, abnormal bleeding, and unusual bruising. Exam: 17:18 Constitutional: This is a well developed, well nourished patient who is awake, alert, kdr and in no acute distress. Head/Face: Normocephalic, atraumatic. Eyes: Pupils equal round and reactive to light, extra-ocular motions intact. Lids and lashes normal. Conjunctiva and sclera are non-icteric and not injected. Cornea within normal limits. Periorbital areas with no swelling, redness, or edema. Neck: Trachea midline, no thyromegaly or masses palpated, and no cervical lymphadenopathy. Supple, full range of motion without nuchal rigidity, or vertebral point tenderness. No Meningismus. Chest/axilla: Normal chest wall appearance and motion. Nontender with no deformity. No lesions are appreciated. Cardiovascular: Regular rate and rhythm with a normal S1 and S2. No gallops, murmurs, or rubs. Normal PMI, no JVD. No pulse deficits. Respiratory: Lungs have equal breath sounds bilaterally, clear to auscultation and percussion. No rales, rhonchi or wheezes noted. No increased work of breathing, no retractions or nasal flaring. Abdomen/GI: Soft, non-tender, with normal bowel sounds. No distension or tympany. No guarding or rebound. No evidence of tenderness throughout. Back: No spinal tenderness. No costovertebral tenderness. Full range of motion. Skin: Warm, dry with normal turgor. Normal color with no rashes, no lesions, and no evidence of cellulitis. MS/ Extremity: Pulses equal, no cyanosis. Neurovascular intact. Full, normal range of motion. Neuro: Awake and alert, GCS 15, oriented to person, place, time, and situation. Cranial nerves II-XII grossly intact. Motor strength 5/5 in all extremities. Sensory grossly intact. Cerebellar exam normal. Normal gait. Psych: Awake, alert, with orientation to person, place and time. Behavior, mood, and affect are within normal limits. Vital Signs: 17:08 BP 124 / 51; Pulse 64; Resp 18; Temp 98.3; Pulse Ox 95% on R/A; Weight 56.7 kg; Height ph 5 ft. 2 in. (157.48 cm); 17:50 BP 113 / 47; Pulse 57; Resp 17; Temp 98.3(TE); Pulse Ox 100% on R/A; mh5 18:46 BP 120 / 48; Pulse 66; Resp 18; Temp 97.8(TE); Pulse Ox 100% on Nebulizer Mask; mh5 19:18 BP 129 / 58; Pulse 74; Resp 18; Pulse Ox 100% ; Pain 0/10; ao 22:00 BP 115 / 58; Pulse 76; Resp 16; Pulse Ox 100% ; Pain 0/10; ao 17:08 Body Mass Index 22.86 (56.70 kg, 157.48 cm) ph MDM: 17:18 Data reviewed: vital signs, nurses notes, lab test result(s). Counseling: I had a kdr detailed discussion with the patient and/or guardian regarding: the historical points, exam findings, and any diagnostic results supporting the discharge/admit diagnosis, lab results, the need for outpatient follow up. 19:08 Patient medically screened. pm1 20:16 Physician consultation: John Kurt was called at 20:16, was contacted at 20:16, pm1 regarding admission, patient's condition, requests CT scan, Mart catheter. 09/03 17:13 Order name: CBC with Diff; Complete Time: 20:58 kdr 09/03 17:13 Order name: Chem 7; Complete Time: 18:16 kdr 09/03 20:08 Order name: BMP; Complete Time: 20:58 pm1 09/03 20:15 Order name: CT Abd/Pelvis - Without Contrast pm1 09/03 20:41 Order name: Glucose, Ancillary Testing; Complete Time: 20:46 EDMS 09/03 20:54 Order name: CBC Smear Scan; Complete Time: 20:58 EDMS 09/03 17:18 Order name: EKG - Nurse/Tech; Complete Time: 17:29 kdr 09/03 17:24 Order name: EKG Electrocardiogram; Complete Time: 17:33 EDMS 09/03 20:16 Order name: Mart; Complete Time: 21:32 pm1 Administered Medications: 18:35 Drug: Albuterol 2.5 mg Route: Inhalation; sv 18:35 Drug: Albuterol 2.5 mg Route: Inhalation; sv 18:35 Drug: Albuterol 2.5 mg Route: Inhalation; sv 18:35 Drug: Insulin Regular Human 10 units {Co-Signature: nila (Tammy Dean RN).} Route: sv IVP; Site: right antecubital; 18:58 Follow up: Response: No adverse reaction sv 18:37 Drug: D50W 50 ml Route: IVP; Site: right antecubital; sv 18:58 Follow up: Response: No adverse reaction sv 18:39 Drug: Sodium Bicarbonate 1 amp Route: IVP; Site: right antecubital; sv 18:58 Follow up: Response: No adverse reaction sv 18:41 Drug: Lasix 20 mg Route: IVP; Site: right antecubital; sv 18:57 Follow up: Response: No adverse reaction sv 18:57 Drug: Kayexalate 30 grams Route: PO; sv 19:58 Follow up: Response: No adverse reaction ao 20:17 Drug: NS 0.9% 1000 ml Route: IV; Rate: 1000 ml; Site: right antecubital; ao 22:13 Follow up: IV Status: Completed infusion; IV Intake: 1000ml ao 20:38 Drug: D50W 50 ml Route: IVP; Site: right antecubital; ao 21:06 Follow up: Response: No adverse reaction ao 21:06 Drug: Calcium Gluconate 1 grams Route: IVPB; Infused Over: 60 mins; Site: right ao antecubital; 22:13 Follow up: IV Status: Completed infusion; IV Intake: 100ml ao Disposition: 09/04 07:35 Co-signature as Attending Physician, Nicko Mosqueda MD I agree with the assessment and kdr plan of care. Disposition: 09/03/19 20:19 Hospitalization ordered by John Hicks for Observation. Preliminary diagnosis is Hyperkalemia. - Bed requested for Telemetry/MedSurg (observation). - Status is Observation. ao - Condition is Stable. - Problem is new. - Symptoms have improved. UTI on Admission? No Signatures: Dispatcher [employer] EDKristyn Carty, RN RN Nicko Mosqueda MD MD [facility] Rizwana Mo RN RN Yessica Lees RN RN Vidal Aguilar RN RN ao Aristides Lehman, PER DIEM RN PER DIEM RN pm1 Tammy Dean RN Corrections: (The following items were deleted from the chart) 09/03 21:29 20:19 Hospitalization Ordered by John Hicks for Observation. Preliminary diagnosis cg is Hyperkalemia. Bed requested for Telemetry/MedSurg (observation). Status is Observation. Condition is Stable. Problem is new. Symptoms have improved. UTI on Admission? No. pm1 22:13 21:29 09/03/2019 20:19 Hospitalization Ordered by John Hicks for Observation. ao Preliminary diagnosis is Hyperkalemia. Bed requested for Telemetry/MedSurg (observation). Status is Observation. Condition is Stable. Problem is new. Symptoms have improved. UTI on Admission? No. cg
--- NOTE | 2019-09-03 20:20 | ER ---
Nurse's Notes [facility] Name: Katrin Tsai Age: 84 yrs Sex: Female : 1935 Arrival Date: 09/03/2019 Time: 16:48 Bed 7 Private MD: MENA ALLEN Diagnosis: Hyperkalemia Presentation: 09/03 17:11 Presenting complaint: Patient states: Had blood work done by PCP in [place], called this evening and told her that K+ was high and to come to ED, pt denies chest pain, palpitations, or SOB. Transition of care: patient was not received from another setting of care. Onset of symptoms was September 03, 2019. Risk Assessment: Do you want to hurt yourself or someone else? Patient reports no desire to harm self or others. Initial Sepsis Screen: Does the patient meet any 2 criteria? No. Patient's initial sepsis screen is negative. Does the patient have a suspected source of infection? No. Patient's initial sepsis screen is negative. Care prior to arrival: None. 17:11 Method Of Arrival: Ambulatory 17:11 Acuity: ALY 3 ph Historical: - Allergies: 17:08 Sulfa (Sulfonamide Antibiotics); ph - Home Meds: 17:08 amlodipine 10 mg tab 1 tab once daily [Active]; [place] Thyroid 120 mg Oral tab daily ph [Active]; atorvastatin 20 mg Oral tab 1 tab once daily [Active]; carvedilol 25 mg Oral tab 1 tab daily [Active]; clonidine patch change every week [Active]; clopidogrel 75 mg Oral tab 1 tab once daily [Active]; Lumigan 0.01 % ophthalmic drop nightly [Active]; meclizine 25 mg Oral tab 1 tab 2 times per day [Active]; metformin 500 mg Oral tab 1 tab once daily in the evening [Active]; potassium chloride 10 mEq Oral cpER 1 cap once daily [Active]; omeprazole 20 mg Oral cpDR 1 cap once daily [Active]; spironolactone 25 mg Oral tab 1 tab once daily [Active]; - PMHx: 17:08 Diabetes - NIDDM; Hyperlipidemia; Hypertension; Hypothyroidism; ph - Immunization history:: Adult Immunizations up to date. - Social history:: Smoking status: Patient/guardian denies using tobacco. - Ebola Screening: : No symptoms or risks identified at this time. Screenin:35 Abuse screen: Denies threats or abuse. Denies injuries from another. Nutritional sv screening: No deficits noted. Tuberculosis screening: No symptoms or risk factors identified. Fall Risk None identified. Assessment: 17:35 General: Appears in no apparent distress. comfortable, well groomed, well developed, sv Behavior is calm, cooperative, appropriate for age. Pain: Denies pain. Neuro: Level of Consciousness is awake, alert, obeys commands, Oriented to person, place, time, situation, Moves all extremities. Full function Gait is steady. Cardiovascular: Denies chest pain. Respiratory: Respiratory effort is even, unlabored, Respiratory pattern is regular, symmetrical, Denies shortness of breath. Derm: Skin is pink, warm \T\ dry. 18:20 Reassessment: Dr Mosqueda at bedside discussing results and POC. sv 18:30 Reassessment: Patient appears in no apparent distress at this time. No changes from sv previously documented assessment. Patient and/or family updated on plan of care and expected duration. Pain level reassessed. Patient is alert, oriented x 3, equal unlabored respirations, skin warm/dry/pink. Family remains at the bedside. 19:18 General: Appears in no apparent distress. comfortable, well groomed, well developed, ao well nourished, Behavior is calm, cooperative, appropriate for age. Pain: Denies pain. Neuro: Level of Consciousness is awake, alert, obeys commands, Oriented to person, place, time, situation, Appropriate for age Moves all extremities. Full function Gait is steady, Speech is normal. Cardiovascular: Denies chest pain, Heart tones S1 S2 Capillary refill < 3 seconds Patient's skin is warm and dry. Respiratory: Airway is patent Respiratory effort is even, unlabored, Respiratory pattern is regular, symmetrical, Breath sounds are clear. GI: Abdomen is flat, non-distended. : No signs and/or symptoms were reported regarding the genitourinary system. EENT: No signs and/or symptoms were reported regarding the EENT system. Derm: Skin is pink, warm \T\ dry. normal, Skin temperature is warm. Musculoskeletal: Range of motion: intact in all extremities. 20:17 Reassessment: Patient appears in no apparent distress at this time. No changes from ao previously documented assessment. Patient and/or family updated on plan of care and expected duration. Pain level reassessed. assisted patient to the bathroom. 20:56 Reassessment: laboratory result of K 5.9 and glucose 45 mg/Dl relayed by laboratory rr5 staff Iam, ED provider aware. 21:20 Reassessment: Patient appears in no apparent distress at this time. Patient and/or ao family updated on plan of care and expected duration. Pain level reassessed. Patient is alert, oriented x 3, equal unlabored respirations, skin warm/dry/pink. 22:00 Reassessment: Patient appears in no apparent distress at this time. Patient and/or ao family updated on plan of care and expected duration. Pain level reassessed. Patient is alert, oriented x 3, equal unlabored respirations, skin warm/dry/pink. Patient to be taking to room 412. Vital Signs: 17:08 BP 124 / 51; Pulse 64; Resp 18; Temp 98.3; Pulse Ox 95% on R/A; Weight 56.7 kg; Height ph 5 ft. 2 in. (157.48 cm); 17:50 BP 113 / 47; Pulse 57; Resp 17; Temp 98.3(TE); Pulse Ox 100% on R/A; mh5 18:46 BP 120 / 48; Pulse 66; Resp 18; Temp 97.8(TE); Pulse Ox 100% on Nebulizer Mask; mh5 19:18 BP 129 / 58; Pulse 74; Resp 18; Pulse Ox 100% ; Pain 0/10; ao 22:00 BP 115 / 58; Pulse 76; Resp 16; Pulse Ox 100% ; Pain 0/10; ao 17:08 Body Mass Index 22.86 (56.70 kg, 157.48 cm) ph Vitals: 18:20 Cardiac Rhythm Assessment Sinus rhythm. sv ED Course: 16:48 Patient arrived in ED. mr 16:48 MENA ALLEN is Private Physician. mr 16:49 Nicko Mosqueda MD is Attending Physician. kdr 17:13 Triage completed. ph 17:25 Kristyn Cadena, KENNY is Primary Nurse. sv 17:33 EKG done, by consulting technical manager. reviewed by Nicko Mosqueda MD. sm3 17:35 Patient has correct armband on for positive identification. Placed in gown. Bed in low sv position. Call light in reach. Adult w/ patient. Door closed. Warm blanket given. Head of bed elevated. 17:35 Arm band placed on. sv 17:37 Initial lab(s) drawn, by me, sent to lab. sv 17:41 Awaiting lab results. sv 18:09 Notified ED physician of a critical lab result(s). potassium 7.2. ss 18:15 Awaiting lab results, Awaiting re-evaluation by ER provider. sv 18:30 Inserted saline lock: 22 gauge in right antecubital area, using aseptic technique. sv Flushed right antecubital with 2 ml normal saline. 19:01 Primary Nurse role handed off by Kristyn Cadena RN sv 19:01 Report given to Andreas COX and Vidal RN. sv 19:08 Aristides Lehman NP is PHCP. pm1 19:09 Vidal Aguilar, RN is Primary Nurse. ao 20:17 John Hicks is Hospitalizing Provider. pm1 20:18 Repeat lab(s) drawn. by me, sent to lab. rr5 21:04 CT Abd/Pelvis - Without Contrast In Process Unspecified. EDMS 21:32 Mart cath inserted, using sterile technique, 16 Fr., by ED staff, balloon inflated, to ao gravity drainage, clamped. other BY KENNY Veras. 22:11 No provider procedures requiring assistance completed. Patient admitted, IV remains in ao place. Administered Medications: 18:35 Drug: Albuterol 2.5 mg Route: Inhalation; sv 18:35 Drug: Albuterol 2.5 mg Route: Inhalation; sv 18:35 Drug: Albuterol 2.5 mg Route: Inhalation; sv 18:35 Drug: Insulin Regular Human 10 units {Co-Signature: hb (Tammy Dean RN).} Route: sv IVP; Site: right antecubital; 18:58 Follow up: Response: No adverse reaction sv 18:37 Drug: D50W 50 ml Route: IVP; Site: right antecubital; sv 18:58 Follow up: Response: No adverse reaction sv 18:39 Drug: Sodium Bicarbonate 1 amp Route: IVP; Site: right antecubital; sv 18:58 Follow up: Response: No adverse reaction sv 18:41 Drug: Lasix 20 mg Route: IVP; Site: right antecubital; sv 18:57 Follow up: Response: No adverse reaction sv 18:57 Drug: Kayexalate 30 grams Route: PO; sv 19:58 Follow up: Response: No adverse reaction ao 20:17 Drug: NS 0.9% 1000 ml Route: IV; Rate: 1000 ml; Site: right antecubital; ao 22:13 Follow up: IV Status: Completed infusion; IV Intake: 1000ml ao 20:38 Drug: D50W 50 ml Route: IVP; Site: right antecubital; ao 21:06 Follow up: Response: No adverse reaction ao 21:06 Drug: Calcium Gluconate 1 grams Route: IVPB; Infused Over: 60 mins; Site: right ao antecubital; 22:13 Follow up: IV Status: Completed infusion; IV Intake: 100ml ao Intake: 22:13 IV: 100ml; Total: 100ml. ao 22:13 IV: 1000ml; Total: 1100ml. ao Outcome: 20:19 Decision to Hospitalize by Provider. pm1 22:11 Admitted to Tele accompanied by tech, via stretcher, room 412, with chart, Report ao called to KENNY Haas 22:11 Condition: stable 22:13 Patient left the ED. ao Signatures: Dispatcher [employer] EDMS Kristyn Cadena RN RN Nicko Dill MD MD kdr Rivera, Mary mr Gissel Pedroza RN RN Rizwana Mo RN RN Vidal Aguilar RN RN ao Aristides Lehman, VANDANA [employer]ER pm1 Marlene Simeon 5 Deborah Hedrick 3 Andreas Eastman RN RN rr5 Tammy Dean RN hb Corrections: (The following items were deleted from the chart) 18:47 18:35 Inserted saline lock: 22 gauge in right antecubital area, using aseptic sv technique. Flushed right antecubital with 2 ml normal saline sv
[2019-09-03] MEDS ORDERED: CALCIUM GLUCONATE 1 GM IVPB 1 GM/50 ML BAG IV ONE (20:52)
[2019-09-03 20:54] LABS: Anisocytosis 1+; Blood Morphology Comment NOTED (NOT SEEN); Platelet Estimate ADEQ; Poikilocytosis SLIGHT; Polychromasia SLIGHT; Urine White Blood Cell Casts OK
[2019-09-03 20:57] LABS: Potassium 5.9 mmol/L (3.5-5.1)
--- NOTE | 2019-09-03 21:21 | P.HP ---
Certification for Inpatient Patient admitted to: Observation With expected LOS: <2 Midnights Practitioner: I am a practitioner with admitting privileges, knowledge of patient current condition, hospital course, and medical plan of care. Services: Services provided to patient in accordance with Admission requirements found in Title 42 Section 412.3 of the Code of Federal Regulations Patient History Date of Service: 09/03/19 Reason for admission: Hyperkalemia History of Present Illness: 84-year-old lady with a history of diabetes mellitus type 2, hypertension, chronic kidney disease stage 3, was referred by her cosmetician apprentice Dr. Lozoya to the emergency department to be evaluated for hyperkalemia. Patient denies any symptoms. She denies any palpitations or nausea or vomiting. She denies any constipation or diarrhea. Her potassium level in the ED was up to 7.4. EKG showed peak T-waves. Patient was given hyperkalemia treatment with IV d 50, IV insulin, IV sodium bicarb, IV Lasix, oral Kayexalate and albuterol inhaler. Her potassium level has decreased to 5.9. Patient is placed under observation for further treatment of hyperkalemia. Allergies Sulfa (Sulfonamide Antibiotics) Allergy (Verified 09/03/19 22:24) Hives Home Medications: Amlodipine Besylate 10 mg PO DAILY 11/22/18 Atorvastatin Calcium 20 mg PO BEDTIME 11/22/18 Bimatoprost [Lumigan] 1 drop OPTH BEDTIME 11/22/18 Clonidine Patch [Catapres-Tts 1*] 1 each TD EVERY 7TH DAY 11/22/18 Clopidogrel Bisulfate [Plavix*] 75 mg PO DAILY 11/22/18 Meclizine HCl 2 tab PO Q6H PRN 11/22/18 Metformin HCl 500 mg PO BID 11/22/18 Omeprazole 20 mg PO DAILY 11/22/18 Thyroid,Pork [[place] Thyroid] 120 mg PO DAILY 11/22/18 ALPRAZolam [Alprazolam] 0.25 mg PO SEECOM 09/04/19 Carvedilol [Coreg*] 25 mg PO BID 09/04/19 Losartan Potassium 1 tab PO DAILY 09/04/19 Magnesium [Magnesium Gluconate] 1 tab PO DAILY 09/04/19 Spironolactone 25 mg PO DAILY 09/04/19 Turmeric Root Extract [Turmeric] 1 cap PO DAILY 09/04/19 - Past Medical/Surgical History Diabetic: Yes -: hypothyroidism -: NIDDM -: HTN -: hyperlipidemia -: Renal insufficiency -: Appy - 1970 -: Hysterectomy - 1974 -: Bilat breast biopsy - negative - Family History Father -: Diabetes - Social History Alcohol use: No CD- Drugs: No Caffeine use: No Review of Systems Other: General: No fever, no malaise, no unintentional weight loss. Eyes: No eye discharge, Respiratory: No cough, no shortness of breath. CVS: No chest pain, no palpitation, no lightheadedness. GI: No abdominal pain, no nausea no vomit, no constipation, no diarrhea. Genitourinary: No dysuria, no urinary frequency, no incontinence, no hematuria. Musculoskeletal: No joint pains, or joint swelling, no gait instability. Neurology: No headache, no asymmetric, weakness, no problem with swallowing. Except as documented, all other systems reviewed and negative. Physical Examination - Physical Exam General: Alert, In no apparent distress, Oriented x3 HEENT: Normocephalic, PERRLA, Mucous membr. moist/pink Neck: Supple, JVD not distended, No Thyromegaly Respiratory: Clear to auscultation bilaterally, Normal air movement Cardiovascular: No edema, Normal pulses, Regular rate/rhythm, Normal S1 S2, No murmurs Capillary refill: <2 Seconds Gastrointestinal: Normal bowel sounds, Soft and benign, Non-distended, No tenderness Musculoskeletal: No swelling Integumentary: No rashes Neurological: Normal speech, Normal strength at 5/5 x4 extr, Cranial nerves 3- 12 intact - Studies Laboratory Data (last 24 hrs) 09/03/19 20:15: Sodium 141, Potassium 5.9 H*, BUN 80 H, Creatinine 2.31 H, Glucose 45 L* 09/03/19 17:34: Sodium 139, Potassium 7.2 H*, BUN 84 H, Creatinine 2.50 H, Glucose 104 09/03/19 17:34: WBC 5.8, Hgb 10.7 L, Hct 32.3 L, Plt Count 214 Assessment and Plan - Problems (Diagnosis) (1) Hyperkalemia Current Visit: Yes Status: Acute (2) Chronic kidney disease, stage 3 Current Visit: Yes Status: Chronic (3) Hypertension Onset Date: 11/24/18 Current Visit: No Status: Chronic Qualifiers: (4) Type 2 diabetes mellitus Onset Date: 11/24/18 Current Visit: No Status: Chronic Qualifiers: - Plan Placed under observation with telemetry Hydrate with IV normal saline Check potassium level every 6 hrs and repeat Kayexalate and Lasix as needed. I recommended calcium gluconate to be given in the ED. CT abdomen and pelvis to rule out postobstructive uropathy. Hold Aldactone and losartan Continue other antihypertensives-clonidine and amlodipine. Hydralazine p.r.n. for BP spikes. Consult to nephrology-Dr. Lozoya. Insulin sliding scale for glucose management. D50 as needed for hypoglycemia. - Advance Directives Does patient have a Living Will: Yes Does patient have a Durable POA for Healthcare: Yes
[2019-09-03] MEDS: NA CHLORIDE 0.9% 1,000 ML IV SCH (22:00)
[2019-09-03 22:56] VITALS: BMI 22.1
[2019-09-04] MEDS: HEPARIN 5000 UNIT/ML 1 ML VIAL SQ SCH ×3 (00:58→16:46)
[2019-09-04 05:30] LABS: Magnesium 1.9 mg/dL (1.8-2.4); Potassium 5.2 mmol/L (3.5-5.1)
[2019-09-04] MEDS ORDERED: SOD POLYSTYREN SUL 15 GM/60 ML UCUP PO ONE (07:04)
[2019-09-04] MEDS: NA CHLORIDE 0.9% 1,000 ML IV SCH ×2 (07:28→16:58)
[2019-09-04] MEDS: INSULIN -REGULAR HUMAN 50 UNIT/0.5 ML ML SQ SCH ×3 (07:30→16:02)
--- NOTE | 2019-09-04 07:55 | EKG ---
Test Date: 2019-09-03 Test Time: 17:29:49 Pantograph Operator: DAYNE MEASUREMENT RESULTS: Intervals: Rate: 58 TN: 186 QRSD: 84 QT: 400 QTc: 392 Murray: P: 40 TN: 186 QRS: 6 T: 24 INTERPRETIVE STATEMENTS: Sinus bradycardia Minimal voltage criteria for LVH, may be normal variant Abnormal ECG Compared to ECG 11/21/2018 22:14:19 Sinus rhythm no longer present Electronically Signed On 09-04-19 07:54:39 [employer]OP PIT WORKER by Syd Luciano
--- NOTE | 2019-09-04 09:33 | RAD REPORT ---
EXAM DESCRIPTION: Abdomen Pelvis Wo Contrast CLINICAL HISTORY: 84 years Female Hyperkalemia TECHNIQUE: Contiguous axial images obtained through the abdomen and pelvis without IV contrast. Co vamsi and sagittal reformatted images provided. This CT exam was performed according to our departmental dose-optimization program, which includes on e or more of the following dose reduction techniques: automated exposure control, adjustment of the m A and/or kV according to patient size, and/or use of iterative reconstruction technique. COMPARISON: No prior exams provided for comparison. FINDINGS: There is mild distention of the urinary bladder with mild fullness of the renal pelvises b ilaterally, right greater than left. There are no renal, ureteral, or bladder calculi. No visualized renal mass or perinephric fluid collection. There is mild to moderate diffuse colonic constipation without bowel inflammation, obstruction, pneum atosis, free intraperitoneal air, abscess, or ascites. There are bibasilar pulmonary nodules measuring up to 7 mm, incompletely imaged. There is an 11 mm soft tissue nodule in the right breast. The unenhanced liver, biliary tree, gallbladder, pancreas, spleen, and kidneys demonstrate no acute f indings. Prior hysterectomy. Atherosclerosis without abdominal aortic aneurysm or retroperitoneal hemorrhage. Mild chronic degenerative changes in the spine without acute fracture. Heterogeneously dense bones ar e nonspecific and could be related to chronic renal disease. IMPRESSION: Mild distention of the urinary bladder with mild fullness of the renal pelvises bilatera lly. No urinary calculus or visualized renal mass on this noncontrast study. Colonic constipation without bowel inflammation or obstruction. Breast nodule should be followed up with mammogram. Bibasilar pulmonary nodules should be followed up at 3-6 months. Consider additional follow-up at 18- 24 months. Heterogeneously dense bones could reflect chronic renal disease. Electronically signed by: Leena Crow MD 09/03/2019 9:27 PM REMOTE INPATIENT CODER Due to temporary technical issues with the PACS/Fluency reporting system, reports are being signed by the in house radiologist as a courtesy to ensure prompt reporting. The interpreting radiologist is f ully responsible for the content of the report.
[2019-09-04 16:16] VITALS: O2SAT 97
[2019-09-04 16:25] VITALS: BP 163/77; TEMP 98.3
[2019-09-04] MEDS ORDERED: ALPRAZOLAM 0.5 MG TABLET PO PRN (17:00)
--- NOTE | 2019-09-04 20:50 | P.CNS ---
Date of Consult: 09/04/19 Reason for Consult: SHANKAR/ Hyperkalemia Requesting Physician: Lizbeth Jacobson Chief Complaint: Hyperkalemia History of Present Illness: 84-year-old lady with a history of diabetes mellitus type 2, hypertension, chronic kidney disease stage 3, was referred by her assignment officer Dr. Lozoya to the emergency department to be evaluated for hyperkalemia. Patient denies any symptoms. She denies any palpitations or nausea or vomiting. She denies any constipation or diarrhea. Her potassium level in the ED was up to 7.4. EKG showed peak T-waves. Patient was given hyperkalemia treatment with IV d 50, IV insulin, IV sodium bicarb, IV Lasix, oral Kayexalate and albuterol inhaler. Her potassium level has decreased to 5.9. Patient is placed under observation for further treatment of hyperkalemia. 17:18 This 84 yrs old Black Female presents to ER via Ambulatory with complaints of Abnormal kdr Lab Results. 17:18 The patient had blood drawn in [place] earlier today and the lab called her to inform kdr her that her potassium was high. She does not know the value. Onset: The symptoms/episode began/occurred at an unknown time. Severity of symptoms: At their worst the symptoms were Pain is currently a 0 / 10. The patient has not experienced similar symptoms in the past. The patient has not recently seen a physician. Allergies Sulfa (Sulfonamide Antibiotics) Allergy (Verified 09/03/19 22:24) Hives Home Medications: Amlodipine Besylate 10 mg PO DAILY 11/22/18 Atorvastatin Calcium 20 mg PO BEDTIME 11/22/18 Bimatoprost [Lumigan] 1 drop OPTH BEDTIME 11/22/18 Clonidine Patch [Catapres-Tts 1*] 1 each TD EVERY 7TH DAY 11/22/18 Clopidogrel Bisulfate [Plavix*] 75 mg PO DAILY 11/22/18 Meclizine HCl 2 tab PO Q6H PRN 11/22/18 Metformin HCl 500 mg PO BID 11/22/18 Omeprazole 20 mg PO DAILY 11/22/18 Thyroid,Pork [[place] Thyroid] 120 mg PO DAILY 11/22/18 ALPRAZolam [Alprazolam] 0.25 mg PO SEECOM 09/04/19 Carvedilol [Coreg*] 25 mg PO BID 09/04/19 Magnesium [Magnesium Gluconate] 1 tab PO DAILY 09/04/19 Turmeric Root Extract [Turmeric] 1 cap PO DAILY 09/04/19 - Past Medical/Surgical History Diabetic: Yes -: hypothyroidism -: NIDDM -: HTN -: hyperlipidemia -: Renal insufficiency -: Appy - 1970 -: Hysterectomy - 1974 -: Bilat breast biopsy - negative - Family History Father Medical History: Diabetes - Social History Alcohol use: No CD- Drugs: No Caffeine use: No Place of Residence: Home Review of Systems 10-point ROS is otherwise unremarkable General: Weakness Neurological: Weakness Physical Examination Temp Pulse Resp BP Pulse Ox 98.3 F 97 H 18 163/77 H 98 09/04/19 16:00 09/04/19 16:00 09/04/19 16:00 09/04/19 16:00 09/04/19 16:00 General: In no apparent distress, Oriented x3, Cooperative HEENT: Atraumatic Neck: Supple Respiratory: Clear to auscultation bilaterally Cardiovascular: No edema, Regular rate/rhythm, No rubs Gastrointestinal: Soft and benign, Non-distended, No tenderness Musculoskeletal: No clubbing, No contractures Integumentary: No rashes, No breakdown, No cyanosis Neurological: Normal speech Laboratory Data (last 24 hrs) 09/03/19 20:15: Sodium 141, Potassium 5.9 H*, BUN 80 H, Creatinine 2.31 H, Glucose 45 L* 09/03/19 17:34: WBC 5.8, Hgb 10.7 L, Hct 32.3 L, Plt Count 214 Imagings Data: EXAM DESCRIPTION: Abdomen Pelvis Wo Contrast CLINICAL HISTORY: 84 years Female Hyperkalemia TECHNIQUE: Contiguous axial images obtained through the abdomen and pelvis without IV contrast. Coronal and sagittal reformatted images provided. This CT exam was performed according to our departmental dose-optimization program, which includes one or more of the following dose reduction techniques: automated exposure control, adjustment of the mA and/or kV according to patient size, and/or use of iterative reconstruction technique. COMPARISON: No prior exams provided for comparison. FINDINGS: There is mild distention of the urinary bladder with mild fullness of the renal pelvises bilaterally, right greater than left. There are no renal, ureteral, or bladder calculi. No visualized renal mass or perinephric fluid collection. There is mild to moderate diffuse colonic constipation without bowel inflammation, obstruction, pneumatosis, free intraperitoneal air, abscess, or ascites. There are bibasilar pulmonary nodules measuring up to 7 mm, incompletely imaged. There is an 11 mm soft tissue nodule in the right breast. The unenhanced liver, biliary tree, gallbladder, pancreas, spleen, and kidneys demonstrate no acute findings. Prior hysterectomy. Atherosclerosis without abdominal aortic aneurysm or retroperitoneal hemorrhage. Mild chronic degenerative changes in the spine without acute fracture. Heterogeneously dense bones are nonspecific and could be related to chronic renal disease. IMPRESSION: Mild distention of the urinary bladder with mild fullness of the renal pelvises bilaterally. No urinary calculus or visualized renal mass on this noncontrast study. Colonic constipation without bowel inflammation or obstruction. Breast nodule should be followed up with mammogram. Bibasilar pulmonary nodules should be followed up at 3-6 months. Consider additional follow-up at 18-24 months. Heterogeneously dense bones could reflect chronic renal disease. Conclusions/Impression: A/ SHANKAR of unclear etiology. Hyperkalemia in the setting of Losartan and Spironolactone. In May, started Glucerna twice daily. CKD III. HTN with CKD. DM II with CKD. Anemia in chronic illness. P/ Continue current POC and Medications. Treatment for hyperkalemia as ordered. Hold Losartan and Spironolactone. Counseled regarding hyperkalemia. No NSAIDs. AM labs. Daily weight. Thank you kindly for the consultation. Case reviewed with Dr. Jacobson.
[2019-09-04] MEDS ORDERED: carvediloL 25 MG TAB PO SCH (21:00)
[2019-09-04] MEDS ORDERED: ATORVASTATIN 20 MG TAB PO SCH (21:00)
[2019-09-04] MEDS ORDERED: BIMATOPROST OPTH SCH (21:00)
--- NOTE | 2019-09-05 04:45 | DS ---
Date of Discharge: 09/04/2019 Consultants: Jose Lozoya D.O. Discharge Diagnoses: 1. Hyperkalemia. 2. Chronic kidney disease stage 3. 3. Essential hypertension. 4. Diabetes mellitus type 2, [id number] with chronic kidney disease. 5. Glaucoma. 6. Mixed hyperlipidemia, on statin. Hospital Course: Patient is an 84-year-old female with past medical history of diabetes, hypertension, hyperlipidemia, chronic kidney disease stage 3, comes in from [employer]'s office due to hyperkalemia. Patient's potassium was 7.4. She had peak T-waves on EKG. She was given acute treatment for hyperkalemia including D50, IV insulin, sodium bicarb, Lasix, Kayexalate, and albuterol. Her potassium improved to 5.9 and subsequently has dropped to 4.7. Patient had recently been started on Aldactone due to hypokalemia. CT scan of the abdomen and pelvis was done to rule out any sort of obstructive uropathy. She had some mild distention of the urinary bladder with fullness of the renal pelvises. No calculus or visualized renal mass was seen, constipation was seen without any bowel inflammation or obstruction. There was an incidental finding of nodule in the right breast, which was 11 mm. Patient stated that she had a recent mammogram in March, which was negative. I spoke with surgeon on-call, Dr. Simeon, he recommended outpatient followup for a biopsy and further evaluation and treatment. Patient understands that this nodule possibly could be malignant. She has had multiple cysts in the past, which have been aspirated and removed in the past. She understands had delayed diagnosis and workup may lead to spreading of this mass if malignant leading to significant morbidity and mortality. Patient also has some bibasilar pulmonary nodules, which should be followed up in the next 3 to 6 months. The patient's losartan, Aldactone will be held for now. She was then cleared for discharge from Nephrology standpoint. She was then sent home in a stable condition. Activity: As tolerated. Diet: Renal. Followup: Follow up with PCP in 2-3 days. Follow up with surgeon, Dr. Simeon in 1 week for a breast nodule workup. Follow up with [employer], Dr. Lozoya in 1 week for lab work. Repeat CT chest for nodes to assess resolution, mammogram. Return to ER for worsening condition. Physical Examination: General: Awake, alert, and oriented x3. No acute distress, elderly female. CV: S1, S2. Respiratory: Moving air well bilaterally. Abdomen: Abdomen is soft, nontender, nondistended. Positive bowel sounds. Extremities: No clubbing, cyanosis, or edema. Neurologic: Nonfocal. /YOANDY Voice ID: [id number] Report ID: [id number] MTDD
[2019-09-05] MEDS ORDERED: PANTOPRAZOLE 40MG TABLET PO SCH (06:30)
[2019-09-05] MEDS ORDERED: HOME MED 1 EA UNK (Omeprazole [Omeprazole] 20 MG) PO SCH (09:00)
[2019-09-05] MEDS ORDERED: AMLODIPINE 10 MG TAB PO SCH (09:00)
[2019-09-05] MEDS ORDERED: CLOPIDOGREL 75 MG TABLET PO SCH (09:00)
[2019-09-05] MEDS ORDERED: HOME MED 1 EA UNK (Thyroid,Pork [Armour Thyroid] 120 MG) PO SCH (09:00)
[2019-09-11] MEDS ORDERED: CLONIDINE 0.1 MG/PATCH TD SCH (09:00)
== END 2019-09-04 17:55 | disposition home or self-care (01) ==
LOC: ER 16:45 → ERHOLD 21:21 → 4TH 21:57
PROVIDERS: ADMIT Internal Medicine; ATTEND Internal Medicine
DX: E87.5 Hyperkalemia (principal); I12.9 Hypertensive chronic kidney disease with stage 1 through stage 4 chronic kidney disease, or unspecified chronic kidney disease; E11.22 Type 2 diabetes mellitus with diabetic chronic kidney disease; N18.3 Chronic kidney disease, stage 3 (moderate); E03.9 Hypothyroidism, unspecified; E78.2 Mixed hyperlipidemia; H40.9 Unspecified glaucoma; Z88.2 Allergy status to sulfonamides
CPT/HCPCS: 96365; 96361; 93005; 85025; 80048 ×3; 36415; 83735; 84100; 84132 ×2; 82947 ×5; 74176; 94760 ×2; 51702; 96375; 99285; J1940; J1644 ×3; J0610; J7030 ×2; G0378 ×3